=== PATIENT | female | born 1995 | race African-American/Black ===

== ENCOUNTER 2021-06-08 12:07 | Emergency (ER) | payer OTHER, SELFPAY ==
[2021-06-08 12:16] VITALS: BP 135/80; PULSE 87; RESP 16; TEMP 36.4; O2SAT 100
--- NOTE | 2021-06-08 12:28 | ED.FEMALEGU ---
HPI - Female Genitourinary General Chief complaint: Vaginal Bleeding Stated complaint: bleeding Time Seen by Provider: 06/08/21 12:18 Source: patient, RN notes reviewed and old records reviewed Mode of arrival: ambulatory Limitations: no limitations History of Present Illness HPI Narrative: 26-year-old female presents to the [facility] with complaints of vaginal bleeding that started after she received a phone call from the [facility]. Patient states that she had 4+ home tests. Went to [facility] and had blood work done yesterday, they called her today and was told her level was 16 shortly after patient reports that she started bleeding, started at 1030 today. denies heavy bleeding, states that she only uses tampons and has not had to change it. Patient states that she has an appointment with them on Saturday. For her past 3 pregnancies patient denies receiving extra injections, currently does not know her blood type. Patient denies any chest pain or abdominal pain. No nausea vomiting or diarrhea. Denies any urinary symptoms. LMP around 09 May. [facility] A0 MD elicited complaint: vaginal bleeding Related Data Home Medications Medication Instructions Recorded Confirmed No Home Medications 06/08/21 06/08/21 Allergies Allergy/AdvReac Type Severity Reaction Status Date / Time peanut Allergy Intermediate Itching Verified 11/05/16 14:48 tree nut Allergy Mild Itching Verified 11/05/16 14:48 wheat Allergy Mild Itching Verified 11/05/16 14:48 Review of Systems Review of Systems: All systems reviewed & are unremarkable except as noted in HPI and below Constitutional: Constitutional: Reports no additional constitutional complaints, Denies chills and Denies fatigue Eyes: Eyes: Reports no additional eye complaints ENT: Reports system reviewed and no additional complaints, except as documented Cardiovascular: Cardiovascular: Reports no additional cardiovascular complaints and Denies chest pain Respiratory: Respiratory: Reports no additional respiratory complaints, Denies cough and Denies dyspnea Gastrointestinal: Gastrointestinal: Reports no additional gastrointestinal complaints, Denies abdominal pain, Denies diarrhea, Denies nausea and Denies vomiting Genitourinary: Genitourinary: Reports as per HPI, Reports abnormal vaginal bleeding, Denies nocturia, Denies dysuria, Denies pelvic pain, Denies flank pain and Denies vaginal discharge Musculoskeletal: Musculoskeletal: Reports no additional musculoskeletal complaints and Denies back pain Integumentary/Breasts: Skin/Breast: Reports system reviewed and no additional complaints, except as docu Neurologic: Reports system reviewed and no additional complaints, except as documented Psychiatric: Psychiatric: Reports no additional psychiatric complaints Allergic/Immunologic: Allergic/Immunologic: Reports no additional allergic/immunologic complaints PMFSH Past Medical History Medical History Patient denies medical problems Surgical History Surgical History (Updated 06/08/21 @ 13:00 by Tsering Ratliff APRN) No history of previous surgery Social History Social History (Updated 06/08/21 @ 13:00 by Tsering Ratliff APRN) Living arrangements: with family Gender identity (if verbalized by the patient): Female Comments At the time of my signature, I reviewed and agree with the nursing past medical, surgical, social, and family history. There is no relevant family history pertinent to the patient complaint. Exam Const: General: healthy appearing, no acute distress and alert Nutritional Appearance: well nourished Orientation/consciousness: patient oriented x3 Limitations: no limitations HENMT: Head: normal to inspection Eyes: Conjunctivae: conjunctivae normal Pupils: Equal, round and reactive pupils present Neck: Neck: normal visual inspection, no lymphadenopathy and
== END 2021-06-08 12:38 | disposition home or self-care (01) ==
PROVIDERS: Emergency Provider Nurse Practitioner
DX: N93.9 Abnormal uterine and vaginal bleeding, unspecified (principal)
CPT/HCPCS: 99211; G0463

== ENCOUNTER 2021-06-08 12:53 | Emergency (ER) | payer OTHER, SELFPAY ==
--- NOTE | ~2021-06-08 | US_ITS ---
EXAMINATION: US OB <= 14 weeks fetus DATE: 06/08/2021 15:25 INDICATION: Abdominal pain. Vaginal bleeding. TECHNIQUE: Real-time transabdominal and transvaginal pelvic ultrasound was performed. COMPARISON: None. FINDINGS: TRANSABDOMINAL ULTRASOUND: The uterus measures 8.8 x 4.7 x 5.0 cm. TRANSVAGINAL ULTRASOUND: There is no visible intrauterine gestational sac. The right ovary measures 3 .0 x 1.9 x 1.5 cm. The left ovary measures 4.1 x 1.4 x 1.6 cm. There is normal vascular flow in the o varies. There is physiologic free fluid in the pelvis. IMPRESSION: 1. No visible intrauterine gestational sac, which may be normal in early . Spontaneous abor tion and ectopic are not excluded. Serial beta hCGs are recommended. Reviewed, dictated and finalized at location A. IMPRESSION: 1. No visible intrauterine gestational sac, which may be normal in early pregn berkley. Spontaneous and ectopic are not excluded. Serial beta hCGs are recommended.
[2021-06-08 13:00] VITALS: BP 124/81; PULSE 96; RESP 20; TEMP 36.3; O2SAT 100
--- NOTE | 2021-06-08 13:24 | PC.NURSE ---
Dr. Oneal at bedside to assess pt.
--- NOTE | 2021-06-08 13:47 | PC.NURSE ---
Patient set up for pelvic exam.
[2021-06-08 13:50] LABS: Basophils Percent Auto 0.4 % (0.2-1.2); Eosinophils Absolute Auto 0.2 K/mm3 (0-0.3); Eosinophils Percent Auto 2.7 % (0-4.4); Hematocrit 38.1 % (37.0-47.0); Immature Granulocyte Absolute 0.02 K/mm3 (0.00-0.031); Immature Granulocyte Percent A 0.3 % (0-0.5); Lymphocytes Absolute Auto 2.09 K/mm3 (0.9-3.2); Lymphocytes Percent Auto 30.1 % (18.3-44.2); Mean Corpuscular HGB Conc 31.5 g/dl (32-36); Mean Corpuscular Hemoglobin 26.7 pg (26-34); Mean Corpuscular Volume 84.7 fl (80-100); Mean Platelet Volume 11.3 fl (7.4-10.4); Monocytes Absolute Auto 0.3 K/mm3 (0.1-0.6); Monocytes Percent Auto 4.7 % (2.6-8.5); Neutrophils Absolute Auto 4.3 K/mm3 (1.3-6.7); Neutrophils Percent Auto 61.8 % (45.5-73.1); Platelet Count Result 247 k/mm3 (150-375); Red Cell Distribution Width 12.9 % (11.5-14.5)
[2021-06-08 14:23] LABS: Beta HCG Quantitative 7.92 mIU/ML
--- NOTE | 2021-06-08 14:46 | ED.PREGNANCY ---
HPI - General Chief complaint: Vaginal Bleeding Stated complaint: miscarriage Time Seen by Provider: 06/08/21 13:06 Source: patient and RN notes reviewed Mode of arrival: ambulatory Limitations: no limitations History of Present Illness HPI Narrative: This is a 26 year old female who presents for evaluation of a miscarriage. Patient thinks her last menstrual cycle was May 09. She took 7 test last week and they were positive. She was evaluated by her sustainability engineer this week and she reports her HCG is decreasing and it was 16 on last check. Patient started having heavy vaginal bleeding today. She reports she is passing clots and having lower abdominal cramping. She denies nausea, vomiting, lightheadedness or fever. She does report fatigue. Related Data Home Medications Medication Instructions Recorded Confirmed No Home Medications 06/08/21 06/08/21 Allergies Allergy/AdvReac Type Severity Reaction Status Date / Time peanut Allergy Intermediate Itching Verified 11/05/16 14:48 tree nut Allergy Mild Itching Verified 11/05/16 14:48 wheat Allergy Mild Itching Verified 11/05/16 14:48 Review of Systems Review of Systems: All systems reviewed & are unremarkable except as noted in HPI and below PMFSH Past Medical History Medical History Patient denies medical problems Surgical History Surgical History (Updated 06/08/21 @ 13:00 by Tsering Ratliff APRN) No history of previous surgery Social History Social History (Updated 06/08/21 @ 14:51 by Nannette Oneal MD) Smoking status: Current every day smoker Alcohol intake: current Living arrangements: with family Gender identity (if verbalized by the patient): Female Exam Const: General: no acute distress and alert Orientation/consciousness: patient oriented x3 Eyes: EOM: EOMs intact bilaterally Resp: Effort & Inspection: normal respiratory effort and no retractions Auscultation: clear to auscultation bilaterally Cardio: Rate: regular rate Rhythm: regular rhythm Heart sounds: no murmurs GI: GI Palp: Yes Soft to palpation, No Tenderness to palpation present (GI), No Guarding due to palpation present (GI) and No Rigid due to palpation Auscultation: normal bowel sounds : General: Yes no CVA tenderness Speculum Exam - Cervix: Cervical os closed Other: minimal bleeding. Skin: General skin exam: normal color Rashes: no rashes Neuro: General: patient oriented x3, moves all extremities and CN's II-XI intact bilaterally Psych: Mental Status: mental status grossly normal Affect: normal affect Course Reevaluation(s) Reevaluation #1: I discussed with patient labs and US. HCG has continued to decreased so this is likely miscarriage or failed Date: 06/08/21 Time: 15:34 Vital Signs Vital signs: Vital Signs Temperature 97.3 F L 06/08/21 13:00 Pulse Rate 96 06/08/21 13:00 Respiratory Rate 20 06/08/21 13:00 Blood Pressure 124/81 06/08/21 13:00 Pulse Oximetry 100 06/08/21 13:00 Temperature 98.9 F 06/08/21 15:57 Pulse Rate 93 06/08/21 15:57 Respiratory Rate 16 06/08/21 15:57 Blood Pressure 137/99 H 06/08/21 15:57 Pulse Oximetry 100 06/08/21 15:57 MDM - OB/Uterine Contractions Lab Data Attestation: I reviewed the patient's lab results. Result diagrams: 06/08/21 13:40 Labs: Lab Results 06/08/21 06/08/21 Range/Units 13:40 13:40 WBC 7.0 (4.5-10.0) K/mm3 RBC 4.50 (4.2-5.4) M/mm3 Hgb 12.0 (12.0-15.0) g/dL Hct 38.1 (37.0-47.0) % MCV 84.7 (80-100) fl MCH 26.7 (26-34) pg MCHC 31.5 L (32-36) g/dl RDW 12.9 (11.5-14.5) % Plt Count 247 (150-375) k/mm3 MPV 11.3 H (7.4-10.4) fl Immature Gran % (Auto) 0.3 (0-0.5) % Neut % (Auto) 61.8 (45.5-73.1) % Lymph % (Auto) 30.1 (18.3-44.2) % Haines % (Auto) 4.7 (2.6-8.5) % Eos % (Auto) 2.7 (0-4.4)
--- NOTE | 2021-06-08 15:11 | PC.NURSE ---
Pt off unit to US.
--- NOTE | 2021-06-08 15:15 | PC.NURSE ---
Patient returned to room from US. Call light within reach. Awaiting results and disposition. Will continue to monitor.
[2021-06-08 15:57] VITALS: BP 137/99; PULSE 93; RESP 16; TEMP 37.2; O2SAT 100
== END 2021-06-08 16:00 | disposition home or self-care (01) ==
PROVIDERS: Emergency Provider General Practice
DX: O03.9 Complete or unspecified spontaneous abortion without complication (principal); F17.200 Nicotine dependence, unspecified, uncomplicated
CPT/HCPCS: 36415; 76801; 84702; 85025; 99284

== ENCOUNTER 2021-11-05 18:46 | Emergency (ER) | payer OTHER, SELFPAY ==
--- NOTE | 2021-11-05 18:49 | ED.URI ---
HPI - URI/Sore Throat General Chief Complaint: Upper Respiratory Infection Stated Complaint: not feeling well Time Seen by Provider: 11/05/21 18:57 Source: patient, RN notes reviewed and old records reviewed Mode of arrival: ambulatory Limitations: no limitations History of Present Illness HPI Narrative: 26-year-old female presents to the [facility] with complaints of sinus congestion since yesterday. Had taken 1 allergy pill Has a history of seasonal allergies but does not take anything daily. Related Data Allergies Allergy/AdvReac Type Severity Reaction Status Date / Time peanut Allergy Intermediate Itching Verified 11/05/21 18:48 tree nut Allergy Mild Itching Verified 11/05/21 18:48 wheat Allergy Mild Itching Verified 11/05/21 18:48 Review of Systems Review of Systems: All systems reviewed & are unremarkable except as noted in HPI and below Constitutional: Constitutional: Reports no additional constitutional complaints, Denies chills and Denies fever(s) Eyes: Eyes: Reports no additional eye complaints ENT: Reports as per HPI, Denies vertigo, Denies dizziness, Denies epistaxis, Reports nasal congestion and Denies sore throat Cardiovascular: Cardiovascular: Reports no additional cardiovascular complaints Respiratory: Respiratory: Reports no additional respiratory complaints Gastrointestinal: Gastrointestinal: Reports no additional gastrointestinal complaints Musculoskeletal: Musculoskeletal: Reports no additional musculoskeletal complaints Integumentary/Breasts: Skin/Breast: Reports system reviewed and no additional complaints, except as docu Neurologic: Reports system reviewed and no additional complaints, except as documented Psychiatric: Psychiatric: Reports no additional psychiatric complaints Allergic/Immunologic: Allergic/Immunologic: Reports no additional allergic/immunologic complaints [facility] Past Medical History Medical History Patient denies medical problems Surgical History Surgical History No history of previous surgery Social History Social History Smoking status: Current every day smoker Alcohol intake: current Gender identity (if verbalized by the patient): Female Comments At the time of my signature, I reviewed and agree with the nursing past medical, surgical, social, and family history. There is no relevant family history pertinent to the patient complaint. Exam Const: General: healthy appearing, no acute distress and alert Nutritional Appearance: well nourished Orientation/consciousness: patient oriented x3 Limitations: no limitations HENMT: Head: normal to inspection Ears: external ears normal, TM's normal bilaterally and EAC's normal General nose exam: Normal external nose present and Normal nares present Face and sinus: normal facial exam Mouth: Yes Normal oral and palatal mucosa present, Yes lip normal and Yes moist mucous membranes Throat: posterior oropharynx normal and uvula midline Eyes: General: appearance normal, both eyes and all related structures Conjunctivae: conjunctivae normal Pupils: Equal, round and reactive pupils present Neck: Neck: normal visual inspection, no lymphadenopathy and no meningeal signs Chest: Chest palpation & inspection: normal inspection of the chest Resp: Effort & Inspection: normal respiratory effort and no use of accessory muscles Auscultation: clear to auscultation bilaterally, no crackles, no rales, no rhonchi and no wheezes Cardio: Rate: regular rate Rhythm: regular rhythm Back/Spine/Pelvis: Cervical Spine: normal cervical lordosis Thoracic/Lumbar Spine: thoracic and lumbar spine normal to inspection Skin: General skin exam: normal color Rashes: no rashes Wounds: no wounds Neuro: General: patient oriented x3, moves all extremities, no meningeal signs and no fo
[2021-11-05 18:57] VITALS: BP 129/76; PULSE 93; RESP 16; TEMP 36.8; O2SAT 100
== END 2021-11-05 19:20 | disposition home or self-care (01) ==
PROVIDERS: Emergency Provider Nurse Practitioner; PCP Physician Assistant
DX: J01.90 Acute sinusitis, unspecified (principal); F17.200 Nicotine dependence, unspecified, uncomplicated
CPT/HCPCS: 99213; G0463

== ENCOUNTER 2022-01-10 11:45 | Outpatient (RCR) | payer OTHER, SELFPAY ==
--- NOTE | 2022-01-02 14:09 | PTOPEVAL1 ---
Assessment and note entered by Ben Chapman, PT Evaluation Information Assessment Status Evaluation Diagnosis DEANDRE knee pain L worse than the R side Subjective Information The patient reports she has been having knee pain for a long time, but it has really gotten bad in these last few weeks. Incidentally the patient also has become . Patient works 8-10 hour shifts on her feet at [employer]. The pain radiated slightly from the front of the knee to up in the lower quads and upper tibia. Pain is aggravated by increased time in standing, stairs, and sleeping. She does use the heat from a heater tower to help with pain, doesn't want to take any medicine secondary to being . Reported Pain Level Pain Score 2,0: Self Report Assessment PT Clinical Summary Vanessa is a 26 year old female coming into the clinic with DEANDRE knee pain with the L knee being worse than the R side. The patient presents with decreased strength in the quads and hips along with tightness in the hamstrings and quads. The patient has pain and hypermobility around the knee joints. Patient could benefit from skilled therapy for exercises to strengthen the muscles in the lower extremities along with stretches to improve body alignment and cryotherapy for pain control. One guarded condition is with patient being she could be having ligament laxity that will slow progress. Plan of Care Interventions Gait Training,Hot Pack/Cold Pack,Manual Therapy, Neuro Re-education,Patient/Caregiver Education, Therapeutic Activities,Therapeutic Exercise, Ultrasound,Other Other Interventions taping PT Services Indicated Yes Treatment Frequency and 1-2x/wk for 8 weeks Duration These treatments will address the objective and functional deficits as defined above. The patient will be advanced safely and appropriately in order for the patient to progress towards his/her prior level of function. Additional exercises will be introduced and as well as a comprehensive home exercise program upon discharge, if needed, ?to ensure carryover of functional gains achieved in the clinic. This treatment plan has been reviewed and agreement upon by the patient.
--- NOTE | 2022-01-15 11:22 | PCPTNOTE ---
Patient did not show up for scheduled appointment this date. Called, unable to leave voice mail due to Pt's voicemail box being full. This is Pt's first N/S.
--- NOTE | 2022-01-24 10:37 | PCPTNOTE ---
Patient did not show up for scheduled appointment this date; called patient's mailbox is full, noted no re-eval or next appointment was scheduled.
--- NOTE | 2022-03-20 16:01 | PCPTNOTE ---
Admitting Provider: Attending Provider: Rajat Shah APN Patient:Leonarda Stevens Date of :1995 Patient has not returned for any further treatments since 01/10/2022, therefore (he/she) will be discharged at this time. Patient?s initial visit was on 01/02/2022 12:30 and (he/she) had a total of ____3____ visits. The goals have been not met. Thank you for referring this patient to [facility]. Please review, sign, date and return this discharge summary AURELIO. I have been updated about the patient's current status and I agree with discharge from the above service at this time. Referring Physician Date
== END 2022-03-19 13:39 | disposition home or self-care (01) ==
LOC: ANHPT 11:45
PROVIDERS: Visit Provider Nurse Practitioner
DX: M25.561 Pain in right knee (principal); M25.562 Pain in left knee
CPT/HCPCS: 97110; 97140; 97161; 97530; 99199

== ENCOUNTER 2022-02-02 11:38 | Emergency (ER) | payer OTHER, SELFPAY ==
[2022-02-02 12:05] VITALS: BP 129/76; PULSE 102; RESP 16; TEMP 36.2; O2SAT 100
[2022-02-02] MEDS: SODIUM CHLORIDE 0.9% IV 1,000 ML 999 ML IV CONT (13:24)
[2022-02-02] MEDS: ONDANSETRON INJ 4 MG/2 ML VIAL IV PUSH (13:24)
--- NOTE | 2022-02-02 13:58 | ED.GENADULT ---
HPI - General Adult General Chief complaint: Abdominal Pain Stated complaint: 12 wks with cramping and n/v Time Seen by Provider: 02/02/22 13:00 History of Present Illness HPI narrative: 26-year-old female presents to the emergency room for evaluation of nausea vomiting and generalized fatigue for 2 weeks. Patient states she is 12 weeks has not received any ASSET COORDINATOR care from her physician at [facility]. Patient states she has been frequently nauseated and unable to keep food and fluids down. Denies any abdominal pain or vaginal bleeding. Related Data Allergies Allergy/AdvReac Type Severity Reaction Status Date / Time peanut Allergy Intermediate Itching Verified 02/02/22 13:23 tree nut Allergy Mild Itching Verified 02/02/22 13:23 wheat Allergy Mild Itching Verified 02/02/22 13:23 Review of Systems Review of Systems: CONSTITUTIONAL: Denies fever, chills, or sweats. EYES: Denies visual changes, redness, or discharge. ENT: Denies rhinorrhea, congestion, sore throat, or otalgia. CARDIOVASCULAR: Denies chest pain, palpitations, or edema. RESPIRATORY: Denies cough or dyspnea. GASTROINTESTINAL: Reports nausea vomiting GENITOURINARY: Denies dysuria or hematuria. SKIN: Denies rash or itching. MUSCULOSKELETAL: Denies back pain, joint pain, or myalgia. NEUROLOGIC: Reports generalized fatigue and weakness PSYCHIATRIC: Denies anxiety or depression. 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 HEAD: Normocephalic, atraumatic. EYES: Conjunctivae normal, PERRLA and EOMI. ENT: External nose normal, Nares clear, no rhinorrhea or epistaxis. Mucous membranes dry. CHEST: Clear to auscultation. No respiratory distress. No wheezes rales or rhonchi. HEART: Regular rate and rhythm. No murmur heard. Normal peripheral pulses. ABDOMEN: Soft, nontender, nondistended, normal active bowel sounds. BACK: No CVA tenderness EXTREMITIES: Normal range of motion. No edema. No clubbing or cyanosis SKIN: Warm, dry, no rash. No noted wounds NEURO: No focal deficits. Alert and oriented x3. MAEW. CN's II-XI intact bilaterally, normal gait PSYCH: Cooperative. Normal mood and affect. Course Vital Signs Vital signs: Vital Signs Temperature 36.2 C L 02/02/22 12:05 Pulse Rate 102 H 02/02/22 12:05 Respiratory Rate 16 02/02/22 12:05 Blood Pressure 129/76 02/02/22 12:05 Pulse Oximetry 100 02/02/22 12:05 Oxygen Delivery Room Air 02/02/22 12:05 Temperature 36.2 C L 02/02/22 12:05 Pulse Rate 102 H 02/02/22 12:05 Respiratory Rate 16 02/02/22 12:05 Blood Pressure 129/76 02/02/22 12:05 Pulse Oximetry 100 02/02/22 12:05 Oxygen Delivery Room Air 02/02/22 12:05 Medical Decision Making Vital Signs Vital Signs: Vital Signs Temperature 36.2 C L 02/02/22 12:05 Pulse Rate 102 H 02/02/22 12:05 Respiratory Rate 16 02/02/22 12:05 Blood Pressure 129/76 02/02/22 12:05 Pulse Oximetry 100 02/02/22 12:05 Oxygen Delivery Room Air 02/02/22 12:05 Temperature 36.2 C L 02/02/22 12:05 Pulse Rate 102 H 02/02/22 12:05 Respiratory Rate 16 02/02/22 12:05 Blo
[2022-02-02 14:08] LABS: Basophils Percent Auto 0.4 % (0.2-1.2); Eosinophils Absolute Auto 0.2 K/mm3 (0-0.3); Eosinophils Percent Auto 2.2 % (0-4.4); Hematocrit 36.4 % (37.0-47.0); Hemoglobin 12.1 g/dL (12.0-15.0); Immature Granulocyte Absolute 0.01 K/mm3 (0.00-0.031); Immature Granulocyte Percent A 0.1 % (0-0.5); Lymphocytes Absolute Auto 1.85 K/mm3 (0.9-3.2); Lymphocytes Percent Auto 24.1 % (18.3-44.2); Mean Corpuscular HGB Conc 33.2 g/dl (32-36); Mean Corpuscular Hemoglobin 27.1 pg (26-34); Mean Corpuscular Volume 81.6 fl (80-100); Monocytes Absolute Auto 0.5 K/mm3 (0.1-0.6); Monocytes Percent Auto 6.6 % (2.6-8.5); Neutrophils Absolute Auto 5.1 K/mm3 (1.3-6.7); Neutrophils Percent Auto 66.6 % (45.5-73.1); Platelet Count Result 196 k/mm3 (150-375); Red Blood Count 4.46 M/mm3 (4.2-5.4); Red Cell Distribution Width 13.6 % (11.5-14.5); White Blood Count 7.7 K/mm3 (4.5-10.0)
[2022-02-02 14:26] LABS: Alanine Aminotransferase 12 U/L (6-35); Albumin Level 4.7 g/dL (3.5-5.1); Alkaline Phosphatase 47 U/L (38-126); Anion Gap 8 mmol/L (8-16); Aspartate Amino Transferase 31 U/L (14-36); Bilirubin,Total 0.4 mg/dL (0.2-1.3); Blood Urea Nitrogen 6 mg/dL (7-17); Calcium 9.4 mg/dL (8.4-10.2); Carbon Dioxide 25 mmol/L (22-30); Chloride 103 mmol/L (98-107); Estimated CRCL calculation 152 ml/min; Estimated Glomerular Filt Rate > 60; Glucose 90 mg/dL (65-110); Lipase 97 U/L (23-300); Potassium 3.9 mmol/L (3.4-5.0); Sodium 136 mmol/L (137-145)
== END 2022-02-02 16:10 | disposition home or self-care (01) ==
PROVIDERS: Emergency Provider Nurse Practitioner Family
DX: O21.9 Vomiting of pregnancy, unspecified (principal); O99.331 Smoking (tobacco) complicating pregnancy, first trimester; F17.210 Nicotine dependence, cigarettes, uncomplicated; Z3A.12 12 weeks gestation of pregnancy
CPT/HCPCS: 36415; 80053; 83690; 85025; 96361; 96374; 99284; J2405; J7030

== ENCOUNTER 2022-04-02 10:12 | Emergency (ER) | payer OTHER, SELFPAY ==
[2022-04-02 10:17] VITALS: BP 108/60; PULSE 93; RESP 16; TEMP 36.3; O2SAT 100
[2022-04-02 11:23] VITALS: RESP 16; O2SAT 100
--- NOTE | 2022-04-02 12:04 | ED.NAVMDI ---
HPI - Nausea/Vomiting/Diarrhea General Chief complaint: Nausea/Vomiting/Diarrhea Stated complaint: vomiting, possible dehydration Time Seen by Provider: 04/02/22 11:30 Source: patient Mode of arrival: ambulatory Limitations: no limitations History of Present Illness HPI Narrative: This is a 27 year old , about 19 weeks , that presents to the ER for nausea and vomiting. Ongoing throughout this . She has seen her OB and had normal US this . She follows with [facility] for her . She has been prescribed several anti-emetics. She has not taken any yet this morning. Reports she has also been having a lot of trouble with heartburn. Denies fever, diarrhea, vaginal bleeding or dysuria. Related Data Allergies Allergy/AdvReac Type Severity Reaction Status Date / Time peanut Allergy Intermediate Itching Verified 04/02/22 12:21 tree nut Allergy Mild Itching Verified 04/02/22 12:21 wheat Allergy Mild Itching Verified 04/02/22 12:21 Review of Systems Review of Systems: CONSTITUTIONAL: Denies fever GASTROINTESTINAL: Reports nausea and vomiting. Denies abdominal pain or diarrhea. GENITOURINARY: Denies dysuria or hematuria. 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 HEAD: Normocephalic, atraumatic. EYES: EOMI. CHEST: Clear to auscultation. No respiratory distress. No wheezes rales or rhonchi HEART: Regular rate and rhythm. No murmur heard. Normal peripheral pulses. ABDOMEN: Soft, nontender, nondistended, normal active bowel sounds. EXTREMITIES: Normal range of motion. No edema. SKIN: Warm, dry, no rash. NEURO: No focal deficits. Alert and oriented x3. PSYCH: Normal mood and affect Course Course Emergency Course: Patient reports improvement. Resting comfortably. Requesting to eat Vital Signs Vital signs: Vital Signs Temperature 97.4 F L 04/02/22 10:17 Pulse Rate 93 04/02/22 10:17 Respiratory Rate 16 04/02/22 10:17 Blood Pressure 108/60 04/02/22 10:17 Pulse Oximetry 100 04/02/22 10:17 Oxygen Delivery Room Air 04/02/22 10:17 Temperature 97.4 F L 04/02/22 10:17 Pulse Rate 93 04/02/22 10:17 Respiratory Rate 16 04/02/22 11:23 Blood Pressure 108/60 04/02/22 10:17 Pulse Oximetry 100 04/02/22 11:23 Oxygen Delivery Room Air 04/02/22 11:23 MDM - Nausea/Vomiting/Diarrhea MDM Narrative Medical decision making narrative: Patient presents to the emergency department for nausea and vomiting of . Currently 19 weeks . She is afebrile and nontoxic-appearing. Has been following with her OB this and has had a normal ultrasound. Reports this has been an ongoing problem for her this . She has been prescribed several antiemetics for this. CBC is without leukocytosis. Does show normocytic anemia with hemoglobin of 10.6. Metabolic panel and lipase without concerning findings. Urine with some evidence of dehydration. Patient given a liter of IV fluids in the ED. No overt evidence for infection, appears to be a contami
[2022-04-02 12:07] LABS: Basophils Percent Auto 0.4 % (0.2-1.2); Eosinophils Absolute Auto 0.1 K/mm3 (0-0.3); Eosinophils Percent Auto 2.2 % (0-4.4); Hematocrit 31.7 % (37.0-47.0); Hemoglobin 10.6 g/dL (12.0-15.0); Immature Granulocyte Absolute 0.02 K/mm3 (0.00-0.031); Immature Granulocyte Percent A 0.4 % (0-0.5); Lymphocytes Absolute Auto 1.36 K/mm3 (0.9-3.2); Lymphocytes Percent Auto 25.3 % (18.3-44.2); Mean Corpuscular HGB Conc 33.4 g/dl (32-36); Mean Corpuscular Hemoglobin 28.3 pg (26-34); Mean Corpuscular Volume 84.8 fl (80-100); Mean Platelet Volume 11.3 fl (7.4-10.4); Monocytes Absolute Auto 0.4 K/mm3 (0.1-0.6); Monocytes Percent Auto 6.5 % (2.6-8.5); Neutrophils Absolute Auto 3.5 K/mm3 (1.3-6.7); Neutrophils Percent Auto 65.2 % (45.5-73.1); Platelet Count Result 189 k/mm3 (150-375); Red Blood Count 3.74 M/mm3 (4.2-5.4); Red Cell Distribution Width 13.3 % (11.5-14.5); White Blood Count 5.4 K/mm3 (4.5-10.0)
[2022-04-02 12:08] LABS: Appearance Urine Slightly Cloudy (Clear); Bilirubin Urine 1+ (Negative); Blood Urine Negative (Negative); Color Urine Yellow (Yellow); Glucose Urine UA Negative (Negative); Ketones Urine 2+ mg/dL (Negative); Leukocyte Esterase Ur Trace LEU/UL (Negative); Nitrate Urine Negative (Negative); Protein Urine 1+ mg/dL (Negative); Specific Grav Ur 1.025 (1.001-1.035)
[2022-04-02] MEDS: ONDANSETRON INJ 4 MG/2 ML VIAL IV PUSH (12:12)
[2022-04-02] MEDS: SODIUM CHLORIDE 0.9% IV 1,000 ML 999 ML IV CONT (12:13)
[2022-04-02] MEDS: FAMOTIDINE 20 MG/2 ML VIAL IV PUSH (12:13)
[2022-04-02 12:26] LABS: Alanine Aminotransferase 11 U/L (6-35); Albumin Level 3.6 g/dL (3.5-5.1); Alkaline Phosphatase 55 U/L (38-126); Anion Gap 5 mmol/L (8-16); Aspartate Amino Transferase 30 U/L (14-36); Bilirubin,Total 0.4 mg/dL (0.2-1.3); Blood Urea Nitrogen 6 mg/dL (7-17); Calcium 8.8 mg/dL (8.4-10.2); Carbon Dioxide 25 mmol/L (22-30); Chloride 106 mmol/L (98-107); Estimated Glomerular Filt Rate > 60; Glucose 90 mg/dL (65-110); Lipase 69 U/L (23-300); Potassium 3.6 mmol/L (3.4-5.0); Sodium 136 mmol/L (137-145)
[2022-04-02 12:31] LABS: Bacteria Urine Trace /hpf; Mucus Urine Heavy /lpf; Squamous Epithelial Cell Urine Many /hpf (Few)
[2022-04-02 12:45] LABS: Add Urine Microscopic? YES
== END 2022-04-02 14:38 | disposition home or self-care (01) ==
PROVIDERS: Emergency Provider Physician Assistant
DX: O21.9 Vomiting of pregnancy, unspecified (principal); Z91.010 Allergy to peanuts; Z87.891 Personal history of nicotine dependence; Z3A.19 19 weeks gestation of pregnancy
CPT/HCPCS: 36415; 80053; 81001; 81025; 83690; 85025; 87086; 87088; 96361; 96374; 96375; 99284; J2405; J7030

== ENCOUNTER 2022-05-28 10:10 | Observation (INO) | payer OTHER, SELFPAY ==
[2022-05-28 10:30] VITALS: BP 120/65; PULSE 93
--- NOTE | 2022-05-28 10:30 | OBADM ---
This patient, Leonarda Stevens, admitted to the OB room OB Post 115 for observation. Patient/family oriented to hospital policies and general routines including ID bracelet, bed and alarms, visiting hours, pain management, procedures, bathroom and other care routines, personal items, smoking policy, room service/diet, and visiting hours. Patient/Family are encouraged to report perceived risks to care and to ask questions if they do not understand what they are told or what they should do.
[2022-05-28 10:45] VITALS: BP 121/78; PULSE 104; BMI 37.5
[2022-05-28 11:00] VITALS: BP 118/71; PULSE 100
[2022-05-28 12:08] LABS: Appearance Urine Turbid (Clear); Bacteria Urine None Seen /hpf; Bilirubin Urine Negative (Negative); Blood Urine Negative (Negative); Color Urine Yellow (Yellow); Glucose Urine UA Negative (Negative); Ketones Urine 2+ mg/dL (Negative); Leukocyte Esterase Ur Negative LEU/UL (NEGATIVE); Mucus Urine Present /lpf; Nitrate Urine Negative (Negative); Non Pathogenic Casts 0-2; Protein Urine Trace mg/dL (Negative); RBC Urine 0-2 /hpf (0-2); Specific Grav Ur 1.017 (1.001-1.035); Squamous Epithelial Cell Urine None seen /hpf (Few); WBC Urine 0-5 /hpf (0-3)
[2022-05-28 12:10] LABS: Add Urine Microscopic? YES
--- NOTE | 2022-05-28 13:00 | PC.NURSE ---
Dr Herr on unit, report on patient given. Orders for IV fluids.
[2022-05-28] MEDS: LACTATED RINGERS 1,000 ML 999 ML IV CONT (13:18)
[2022-05-28] MEDS: ONDANSETRON INJ 4 MG/2 ML VIAL IV PUSH (13:19)
--- NOTE | 2022-05-29 17:23 | PM.OBTRLD ---
OB - Triage/Final Diagnosis Visit Information Reason for evaluation: threatened labor Comments/Additional reasons for admission: I have assessed the risk for this patient, Leonarda Stevens, and determined that she would benefit from observation care. Evaluation Laboratory results: Laboratory Tests 05/28/22 11:09 Urine Color Yellow Urine Appearance Turbid H Urine pH 8.0 Ur Specific [place] 1.017 Urine Protein Trace Urine Glucose (UA) Negative Urine Ketones 2+ H Ur Blood (Man) Negative Urine Nitrate Negative Urine Bilirubin Negative Urine Urobilinogen 2.0 H Ur Leukocyte Esterase Negative Urine RBC 0-2 Urine WBC 0-5 Ur Squamous Epith Cells None seen Urine Bacteria None seen Urine Casts 0-2 Urine Mucus Present
== END 2022-05-28 14:45 | disposition home or self-care (01) ==
PROVIDERS: Admitting Provider Obstetrics & Gynecology; Visit Provider Obstetrics & Gynecology
DX: O47.02 False labor before 37 completed weeks of gestation, second trimester (principal); O26.892 Other specified pregnancy related conditions, second trimester; R10.9 Unspecified abdominal pain; Z3A.27 27 weeks gestation of pregnancy
CPT/HCPCS: 81001; 87086; 87088; 87426; 87804; 87880; 96374; C9803; G0378; G0379; J2405; J7120

== ENCOUNTER 2022-05-28 15:42 | Emergency (ER) | payer OTHER, SELFPAY ==
[2022-05-28 15:55] VITALS: BP 133/71; PULSE 117; RESP 16; TEMP 37; O2SAT 100
--- NOTE | 2022-05-28 15:59 | ED.URI ---
HPI - URI/Sore Throat General Chief Complaint: Upper Respiratory Infection Stated Complaint: Vomiting/ Right Ear Irritation Time Seen by Provider: 05/28/22 16:16 Source: patient and RN notes reviewed Mode of arrival: ambulatory Limitations: no limitations History of Present Illness HPI Narrative: 27-year-old female who is 6 months presents with concern for 3-4 day history of vomiting, ear pain, cough, dry mouth, nasal congestion, stomach cramps. [facility] and her symptoms are not related to her . MD elicited complaint: other (Vomiting) Related Data Home Medications Medication Instructions Recorded Confirmed promethazine 12.5 mg tablet mg 05/28/22 Allergies Allergy/AdvReac Type Severity Reaction Status Date / Time peanut Allergy Intermediate Itching Verified 05/28/22 15:55 tree nut Allergy Mild Itching Verified 05/28/22 15:55 wheat Allergy Mild Itching Verified 05/28/22 15:55 Review of Systems Review of Systems: CONSTITUTIONAL: Reports malaise. Denies chills, sweats, or fever. EYES: Denies visual changes, redness, or discharge. ENT: Reports rhinorrhea, congestion, otalgia and sore throat. CARDIOVASCULAR: Denies chest pain, palpitations, or edema. RESPIRATORY: Reports cough. Denies dyspnea. GASTROINTESTINAL: Reports abdominal pain, nausea, vomiting. Denies diarrhea SKIN: Denies rash or itching. MUSCULOSKELETAL: Denies myalgia. NEUROLOGIC: Denies headache. 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 There is no relevant family history pertinent to the presenting complaint Exam Narrative: GENERAL: Well-appearing, well-nourished, and in no acute distress. HEAD: Normocephalic EYES: PERRLA, conjunctivae clear ENT: Nares clear, turbinates edematous and erythematous, clear discharge. Mucous membranes moist. TM pearly al with dull light reflex bilaterally; no tragal tenderness. Oropharynx not erythematous without lesions. Tonsils not enlarged and without exudate, no drooling, no hoarseness, no trismus, uvula midline. NECK: Supple. No lymphadenopathy CHEST: Clear to auscultation, breath sounds equal. No wheezing, rhonchi, rales, or stridor. No respiratory distress, speaks in full sentences. HEART: Regular rate and rhythm. No murmur heard. SKIN: Warm, dry, no rash. NEURO: Alert and oriented x3. PSYCH: Normal mood and affect Course Course Emergency Course: Patient is aware of diagnosis, understands and agrees to treatment plan. Anticipatory guidance given. Patient agrees to follow-up as directed and is aware of reasons to seek care at the emergency department. Portions of this record may have been created with voice recognition software Level of Care: Express Care Visit Vital Signs Vital signs: Vital Signs Temperature 98.6 F 05/28/22 15:55 Pulse Rate 117 H 05/28/22 15:55 Respiratory Rate 16 05/28/22 15:55 Blood Pressure 133/71 05/28/22 15:55 Pulse Oximetry 100 05/28/22 15:55 Oxygen Delive
== END 2022-05-28 16:28 | disposition home or self-care (01) ==
PROVIDERS: Emergency Provider Nurse Practitioner
DX: J02.0 Streptococcal pharyngitis (principal); Z87.891 Personal history of nicotine dependence; Z20.822 Contact with and (suspected) exposure to COVID-19
CPT/HCPCS: 87426; 87804; 87880; 99213; C9803; G0463

== ENCOUNTER 2022-05-31 04:11 | Emergency (ER) | payer OTHER, SELFPAY ==
[2022-05-31 04:17] VITALS: BP 171/87; PULSE 110; RESP 22; TEMP 36.9; O2SAT 99
[2022-05-31 05:10] LABS: Basophils Percent Auto 0.2 % (0.2-1.2); Eosinophils Absolute Auto 0.3 K/mm3 (0-0.3); Hematocrit 29.8 % (37.0-47.0); Immature Granulocyte Absolute 0.05 K/mm3 (0.00-0.031); Immature Granulocyte Percent A 0.8 % (0-0.5); Lymphocytes Absolute Auto 1.48 K/mm3 (0.9-3.2); Lymphocytes Percent Auto 22.5 % (18.3-44.2); Mean Corpuscular HGB Conc 33.6 g/dl (32-36); Mean Corpuscular Hemoglobin 28.4 pg (26-34); Mean Corpuscular Volume 84.7 fl (80-100); Mean Platelet Volume 10.8 fl (7.4-10.4); Monocytes Absolute Auto 0.4 K/mm3 (0.1-0.6); Monocytes Percent Auto 5.8 % (2.6-8.5); Neutrophils Absolute Auto 4.3 K/mm3 (1.3-6.7); Neutrophils Percent Auto 65.7 % (45.5-73.1); Platelet Count Result 231 k/mm3 (150-375); Red Blood Count 3.52 M/mm3 (4.2-5.4); White Blood Count 6.6 K/mm3 (4.5-10.0)
[2022-05-31 05:28] LABS: Alanine Aminotransferase 12 U/L (6-35); Albumin Level 3.9 g/dL (3.5-5.1); Alkaline Phosphatase 81 U/L (38-126); Anion Gap 5 mmol/L (8-16); Aspartate Amino Transferase 37 U/L (14-36); Bilirubin,Total 0.4 mg/dL (0.2-1.3); Blood Urea Nitrogen 3 mg/dL (7-17); Calcium 9.2 mg/dL (8.4-10.2); Carbon Dioxide 28 mmol/L (22-30); Chloride 102 mmol/L (98-107); Estimated CRCL calculation 181 ml/min; Estimated Glomerular Filt Rate > 60; Glucose 99 mg/dL (65-110); Lipase 62 U/L (23-300); Potassium 3.1 mmol/L (3.4-5.0); Sodium 135 mmol/L (137-145)
[2022-05-31] MEDS: POTASSIUM CHLORIDE 20 MEQ TABLET 40 MEQ PO (05:53)
[2022-05-31] MEDS: PROMETHAZINE HCL 25 MG/ML AMPUL 12.5 MG IV PUSH (05:54)
[2022-05-31] MEDS: ONDANSETRON INJ 4 MG/2 ML VIAL IV PUSH (05:55)
[2022-05-31 06:31] LABS: Appearance Urine Turbid (Clear); Bacteria Urine None Seen /hpf; Bilirubin Urine Negative (Negative); Blood Urine Negative (Negative); Color Urine Yellow (Yellow); Glucose Urine UA Negative (Negative); Ketones Urine Trace mg/dL (Negative); Leukocyte Esterase Ur 1+ LEU/UL (Negative); Nitrate Urine Negative (Negative); Non Pathogenic Casts 0-2; Protein Urine Trace mg/dL (Negative); RBC Urine 0-2 /hpf (0-2); Specific Grav Ur 1.018 (1.001-1.035); Squamous Epithelial Cell Urine Moderate /hpf (Few); pH Urine 8.5 (5.0-9.0)
--- NOTE | 2022-05-31 06:40 | ED.GENADULT ---
HPI - General Adult General Chief complaint: Nausea/Vomiting/Diarrhea Stated complaint: vomiting Time Seen by Provider: 05/31/22 05:39 History of Present Illness HPI narrative: This is a 27-year-old at 26 weeks presenting ED with nausea and vomiting. Patient has been plagued by nausea and vomiting throughout her entire . She has intermittently taken Zofran and Pepcid but states that the Zofran does not work and is not currently taking anything for antiemetics. She is diagnosed with strep 3 days ago and has been taking penicillin with gradual improvement of her symptoms. She denies fever, chills, throat swelling, inability to handle her own secretions. She is here to help get control of her nausea. Patient also notes that she has developed redness and irritation of her right eye today. Related Data Home Medications Medication Instructions Recorded Confirmed promethazine 12.5 mg tablet mg 05/28/22 Allergies Allergy/AdvReac Type Severity Reaction Status Date / Time peanut Allergy Intermediate Itching Verified 05/28/22 15:55 tree nut Allergy Mild Itching Verified 05/28/22 15:55 wheat Allergy Mild Itching Verified 05/28/22 15:55 PMFSH Past Medical History Medical History Patient denies medical problems Surgical History Surgical History History of cholecystectomy Family History Family History Mother Asthma Grandparent Asthma Cancer Depression Heart disease Other Cancer Cerebrovascular accident Sibling Depression Social History Social History Smoking status: Former smoker Tobacco type: cigarettes Living arrangements: with friend(s) Occupation/Education: occupation 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 Head: atraumatic. Mild erythema of the posterior pharynx, no evidence of abscess or uvula deviation EYES: Right eye is injected with clear discharge. NOSE: Atraumatic NECK: Trachea midline RESPIRATORY: No increased rate of breathing, clear to auscultation CARDIOVASCULAR: RRR, tachycardic ABDOMINAL: Non-distended, soft no guarding, no rebound MUSCULOSKELETAl: No obvious deformities NEURO: Alert. Moving 4/4 extremities SKIN:: Warm, dry. Normal color PSYCHIATRIC: Normal affect Course Vital Signs Vital signs: Vital Signs Temperature 98.4 F 05/31/22 04:17 Pulse Rate 110 H 05/31/22 04:17 Respiratory Rate 22 H 05/31/22 04:17 Blood Pressure 171/87 H 05/31/22 04:17 Pulse Oximetry 99 05/31/22 04:17 Oxygen Delivery Room Air 05/31/22 04:17 Temperature 98.4 F 05/31/22 04:17 Pulse Rate 110 H 05/31/22 04:17 Respiratory Rate 22 H 05/31/22 04:17 Blood Pressure 171/87 H 05/31/22 04:17 Pulse Oximetry 99 05/31/22 04:17 Oxygen Delivery Room Air 05/31/22 04:17 Medical Decision Making MDM Narrative Medical decision making narrative: -Presentation: 27-year-old woman presenting with nausea and vomiting. -DDX includes but is not limited to: Nausea vomiting , nausea vomiting due to strep throat -Co-morbidities complicating care: noncompliance of medication -Social determinants of health: patient works at [employer], lives with her 3 children -External Chart Review: none -Hx from independent Sources: none -Discussion of Management/Consultants: none -Independent interpretation of studies: CBC was within normal limits. Metabolic panel showed hypokalemia which will be repleted orally. Urinalysis was a dirty catch w/ 6-10 wbcs per/hpf. Trace ketones. Significant squamous cells. Patient is asymptomatic. Dx tests considered but not ordered: -Procedures:
[2022-05-31 07:20] LABS: Add Urine Microscopic? YES
[2022-05-31 08:14] VITALS: BP 125/62; PULSE 102; RESP 18; O2SAT 100
[2022-06-01 03:21] LABS: Amphetamine Screen Urine Negative (Negative); Barbiturate Screen Urine Negative (Negative); Benzodiazepines Screen Urine Negative (Negative); Cannabinoid Screen Urine Negative (Negative); Cocaine Screen Urine Negative (Negative); Methadone Screen Urine Negative (Negative); Opiate Screen Urine Negative (Negative); Phencyclidine Screen Urine Negative (Negative)
== END 2022-05-31 08:43 | disposition home or self-care (01) ==
PROVIDERS: Emergency Provider Emergency Medicine
DX: Z87.891 Personal history of nicotine dependence (principal); O21.2 Late vomiting of pregnancy; O99.891 Other specified diseases and conditions complicating pregnancy; H10.9 Unspecified conjunctivitis; O99.282 Endocrine, nutritional and metabolic diseases complicating pregnancy, second trimester; E86.0 Dehydration; Z3A.26 26 weeks gestation of pregnancy
CPT/HCPCS: 36415; 80053; 80307; 81001; 83690; 85025; 87086; 96361; 96374; 96375; 99284; A9270; J2405; J2550; J7042

== ENCOUNTER 2022-10-08 12:32 | Emergency (ER) | payer OTHER, SELFPAY ==
[2022-10-08 12:46] VITALS: BP 142/90; PULSE 83; RESP 16; TEMP 37.1; O2SAT 100
--- NOTE | 2022-10-08 12:55 | ED.GENADULT ---
HPI - General Adult General Chief complaint: Skin/Abscess/Foreign Body Stated complaint: Thrush Source: patient Mode of arrival: ambulatory Limitations: no limitations History of Present Illness HPI narrative: 27-year-old female presented for complaint of pain and itching to the nipples worsening over the past 3 days. Endorses mild redness and flaking to the areola. Endorses the infant has white patches in mouth and tongue. Denies any other skin complaints or concerns. Denies severe pain to breasts, erythema, tenderness, or fever. Endorses normal and feeding. Related Data Allergies Allergy/AdvReac Type Severity Reaction Status Date / Time peanut Allergy Intermediate Itching Verified 05/28/22 15:55 tree nut Allergy Mild Itching Verified 05/28/22 15:55 wheat Allergy Mild Itching Verified 05/28/22 15:55 Review of Systems Review of Systems: CONSTITUTIONAL: Denies body aches, fever, chills, or sweats. EYES: Denies visual changes, redness, or discharge. ENT: Denies rhinorrhea, congestion CARDIOVASCULAR: Denies chest pain, palpitations, or edema. RESPIRATORY: Denies cough or dyspnea. GASTROINTESTINAL: Denies abdominal pain, nausea, vomiting, or diarrhea. SKIN: per HPI MUSCULOSKELETAL: Denies back pain, joint pain, or myalgia. NEUROLOGIC: Denies headache, numbness, tingling, or weakness. 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 Please see nursing chart for further information. There is no relevant family history pertinent to the presenting complaint Exam Narrative: GENERAL: Well-appearing HEAD: Normocephalic, atraumatic. EYES: conjunctivae clear, and EOMI. ENT: Mucous membranes moist. Oropharynx without edema, erythema or lesions. NECK: Supple. No lymphadenopathy CHEST: Clear to auscultation. HEART: Regular rate and rhythm. SKIN: Warm, dry. Mild erythema and flaking to bilateral nipples c/w yeast; No apparent impetiginized nipple pores, blocked pores, abrasions, ulcers, and open cracks.?No apparent ?engorgement, masses, abscesses, no significant tenderness, or areas of severe erythema? NEURO: Alert and oriented x3. Course Course Emergency Course: Patient is aware of diagnosis, understands and agrees to treatment plan. Anticipatory guidance given. Patient agrees to follow-up as directed and is aware of reasons to seek care at the emergency department. Portions of this record may have been created with voice recognition software Level of Care: Express Care Visit Vital Signs Vital signs: Vital Signs Temperature 98.7 F 10/08/22 12:46 Pulse Rate 83 10/08/22 12:46 Respiratory Rate 16 10/08/22 12:46 Blood Pressure 142/90 H 10/08/22 12:46 Pulse Oximetry 100 10/08/22 12:46 Oxygen Delivery Room Air 10/08/22 12:46 Temperature 98.7 F 10/08/22 12:46 Pulse Rate 83 10/08/22 12:46 Respiratory Rate 16 10/08/22 12:46 Blood Pressure 142/90 H 10/08/22 12:46 Pulse Oximetry 100 10/08/22 12:46 Oxygen Delivery Room Air 10/08/22 12:46 Rev
== END 2022-10-08 13:29 | disposition home or self-care (01) ==
PROVIDERS: Emergency Provider Nurse Practitioner Family
DX: B37.2 Candidiasis of skin and nail (principal)
CPT/HCPCS: 99213; G0463

== ENCOUNTER 2023-04-23 10:32 | Emergency (ER) | payer OTHER, SELFPAY ==
--- NOTE | ~2023-04-23 | XR_ITS ---
EXAMINATION: XR shoulder LT min 2V INDICATION: Left shoulder pain TECHNIQUE: Four views of the left shoulder are submitted. COMPARISON: 05/02/2014 FINDINGS: Normal alignment. No fracture. Glenohumeral and acromioclavicular joint spaces are normal. Soft tissues are unremarkable. IMPRESSION: 1. No acute osseous abnormality. Reviewed, dictated and finalized at location [facility]
[2023-04-23 10:38] VITALS: BP 139/99; PULSE 100; RESP 16; TEMP 36.6; O2SAT 98
--- NOTE | 2023-04-23 11:35 | ED.EXTPRO ---
HPI - Extremity Problem General Chief complaint: Extremity Problem,Nontraumatic Stated complaint: left arm/neck pain 1 hour Time Seen by Provider: 04/23/23 11:06 Source: patient Mode of arrival: ambulatory Limitations: no limitations History of Present Illness HPI Narrative: Patient is a 28-year-old female who presents the ED with report of left shoulder pain. Patient reports pain began approximately 2 hours ago. Pain extends into her left posterior shoulder/left-sided neck. Worse with movement of her left arm. Has not tried anything for the pain. Denies chest pain or shortness breath. Denies numbness or tingling. Denies history of similar pain. Denies any injury. States she may have slept on wrong. Patient is currently her . Related Data Allergies Allergy/AdvReac Type Severity Reaction Status Date / Time peanut Allergy Intermediate Itching Verified 04/23/23 10:33 tree nut Allergy Mild Itching Verified 04/23/23 10:33 wheat Allergy Mild Itching Verified 04/23/23 10:33 Review of Systems Review of Systems: CONSTITUTIONAL: Denies fever, chills, or sweats. CARDIOVASCULAR: Denies chest pain. RESPIRATORY: Denies dyspnea. GASTROINTESTINAL: Denies abdominal pain, nausea, vomiting. MUSCULOSKELETAL: See HPI. NEUROLOGIC: Denies headache, dizziness, numbness, or weakness. 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 HEAD: Normocephalic, atraumatic. NECK: Focal TTP along L sided paraspinal musculature extending into upper trapezius region, reproducing pain. No midline cervical spinal tenderness. RESPIRATORY: Airway patent, respirations nonlabored. CARDIOVASCULAR: Regular rate and rhythm without murmurs, rubs, or gallops. Radial pulses intact. MUSCULOSKELETAL: Moves all extremities. No gross deformities. Tenderness to palpation throughout posterior and superior left shoulder. No significant limited ROM of LUE. Sensation intact. Capillary refill intact. SKIN: Warm, dry, normal color. NEURO: A&O X3. Speech clear. PSYCHIATRIC: Appropriate mood and affect. Normal interaction. Course Vital Signs Vital signs: Vital Signs Temperature 98 F 04/23/23 10:38 Pulse Rate 100 04/23/23 10:38 Respiratory Rate 16 04/23/23 10:38 Blood Pressure 139/99 H 04/23/23 10:38 Pulse Oximetry 98 04/23/23 10:38 Oxygen Delivery Room Air 04/23/23 10:38 Temperature 98 F 04/23/23 10:38 Pulse Rate 100 04/23/23 10:38 Respiratory Rate 16 04/23/23 10:38 Blood Pressure 139/99 H 04/23/23 10:38 Pulse Oximetry 98 04/23/23 10:38 Oxygen Delivery Room Air 04/23/23 10:38 MDM - Extremity (Nontraumatic) MDM Narrative Medical decision making narrative: Patient?s injury is consistent with musculoskeletal etiology. Focal tenderness along left-sided cervical paraspinal musculature and trapezius muscle. No signs of neurologic or vascular compromise on physical examination. Compartments are soft without signs of compartment syndrome. XR of
[2023-04-23] MEDS: KETOROLAC (*BKC) 60 MG/2 ML VIAL IM (11:49)
[2023-04-23] MEDS: ACETAMINOPHEN 500 MG TABLET 1000 MG PO (11:49)
== END 2023-04-23 12:05 | disposition home or self-care (01) ==
PROVIDERS: Emergency Provider Physician Assistant
DX: S16.1XXA Strain of muscle, fascia and tendon at neck level, initial encounter (principal); S46.912A Strain of unspecified muscle, fascia and tendon at shoulder and upper arm level, left arm, initial encounter; Z90.49 Acquired absence of other specified parts of digestive tract; Z87.891 Personal history of nicotine dependence; X58.XXXA Exposure to other specified factors, initial encounter
CPT/HCPCS: 73030; 96372; 99283; A9270; J1885

== ENCOUNTER 2023-07-09 09:40 | Emergency (ER) | payer OTHER, SELFPAY ==
[2023-07-09 09:52] VITALS: BP 102/64; PULSE 78; RESP 16; TEMP 36.4; O2SAT 100
--- NOTE | 2023-07-09 10:04 | ED.EXTPRO ---
HPI - Extremity Problem General Chief complaint: Extremity Problem,Nontraumatic Stated complaint: both feet hurt,pop Time Seen by Provider: 07/09/23 10:04 Source: patient, RN notes reviewed and old records reviewed Mode of arrival: ambulatory Limitations: no limitations History of Present Illness HPI Narrative: 28-year-old female presents to the [facility] with complaints of feet pain for several months. Patient's reports that when she sits the pain gets worse. Has taken ibuprofen Patient also reports bilateral swelling. Denies any trauma recently. Onset (ago): month(s) Related Data Allergies Allergy/AdvReac Type Severity Reaction Status Date / Time peanut Allergy Intermediate Itching Verified 07/09/23 09:59 tree nut Allergy Mild Itching Verified 07/09/23 09:59 wheat Allergy Mild Itching Verified 07/09/23 09:59 Review of Systems Review of Systems: All systems reviewed & are unremarkable except as noted in HPI and below Constitutional: Constitutional: Reports no additional constitutional complaints Eyes: Eyes: Reports no additional eye complaints ENT: Reports system reviewed and no additional complaints, except as documented Cardiovascular: Cardiovascular: Reports no additional cardiovascular complaints, Denies chest pain and Denies dyspnea Respiratory: Respiratory: Reports no additional respiratory complaints, Denies chest congestion, Denies cough and Denies dyspnea Gastrointestinal: Gastrointestinal: Reports no additional gastrointestinal complaints, Denies abdominal pain, Denies nausea and Denies vomiting Musculoskeletal: Musculoskeletal: Reports as per HPI Integumentary/Breasts: Skin/Breast: Reports system reviewed and no additional complaints, except as docu Neurologic: Reports system reviewed and no additional complaints, except as documented Psychiatric: Psychiatric: Reports no additional psychiatric complaints Allergic/Immunologic: Allergic/Immunologic: Reports no additional allergic/immunologic complaints [facility] Past Medical History Medical History Patient denies medical problems Surgical History Surgical History History of cholecystectomy Family History Family History Mother Asthma Grandparent Asthma Cancer Depression Heart disease Other Cancer Cerebrovascular accident Sibling Depression Social History Social History Smoking status: Former smoker Tobacco type: cigarettes Living arrangements: with friend(s) Occupation/Education: occupation 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 There is no relevant family history pertinent to the patient complaint. Exam Const: General: cooperative, healthy appearing, comfortable, no acute distress, well developed, alert and well nourished Nutritional Appearance: well nourished and obese Orientation/consciousness: patient oriented x3 Limitations: no limitations HENMT: Head: normal to inspection Ears: hearing grossly normal bilaterally and external ears normal Face/Nose/Sinus: Normal external nose present, Normal nares present, Normal nasal mucous membranes and turbinates present, normal facial exam and face symmetric Face and sinus: normal facial exam and face symmetric Eyes: General: appearance normal, both eyes and all related structures Alignment and Position: alignment normal Periorbital: periorbital findings normal Pupils: Equal, round and reactive pupils present EOM: EOMs intact bilaterally Neck: Neck: normal visual inspection, full ROM, no lymphadenopathy and no meningeal signs Chest: Chest palpation & i
== END 2023-07-09 10:29 | disposition home or self-care (01) ==
PROVIDERS: Emergency Provider Nurse Practitioner
DX: M72.2 Plantar fascial fibromatosis (principal); Z87.891 Personal history of nicotine dependence
CPT/HCPCS: 99211; G0463

== ENCOUNTER 2023-07-11 09:51 | Outpatient (CLI) | payer OTHER, SELFPAY ==
--- NOTE | ~2023-07-11 | XR_ITS ---
Left foot Technique: AP and lateral views were obtained. Clinical History: Pain Findings: No acute fracture or dislocation is seen. Osseous alignment is anatomic. Joint spaces are p reserved without erosive or degenerative change. Soft tissues are unremarkable. Impression: Unremarkable left foot radiographs. Reviewed, dictated and finalized at [facility]. Impression: Unremarkable left foot radiographs.
--- NOTE | ~2023-07-11 | XR_ITS ---
Right foot Technique: AP and lateral views were obtained. Clinical History: Pain Findings: No acute fracture or dislocation is seen. Osseous alignment is anatomic. Joint spaces are p reserved without erosive or degenerative change. Soft tissues are unremarkable. Impression: Unremarkable right foot radiographs. Reviewed, dictated and finalized at [facility]. Impression: Unremarkable right foot radiographs.
== END 2023-07-11 09:52 | disposition home or self-care (01) ==
LOC: ANHIMG 09:52
PROVIDERS: Visit Provider Nurse Practitioner Family
DX: M25.561 Pain in right knee (principal); M25.562 Pain in left knee; G89.29 Other chronic pain
CPT/HCPCS: 73562; 73620

== ENCOUNTER 2023-12-07 02:52 | Emergency (ER) | payer OTHER, SELFPAY ==
[2023-12-07 02:56] VITALS: BP 134/80; PULSE 87; RESP 16; TEMP 36.4; O2SAT 100
--- NOTE | 2023-12-07 05:37 | ED.HA ---
HPI - Headache General Chief Complaint: Headache Stated Complaint: headache Time Seen by Provider: 12/07/23 05:29 History of Present Illness HPI Narrative: 28-year-old female with no other past medical history presenting to the emergency depart for evaluation of headache and some nauseousness. She states she was drinking yesterday and felt queasy to her abdomen and felt headache came on. She took some oxycodone she had left over from giving earlier this year. She states that the oxycodone did not make her headache go away and actually made her feel worse. She took several more throughout the day without any real improvement. She presents to the emergency department with nausea and vomiting. She vomited several times and states her headache actually improved after this. She has no headache presently but is in boarding still feeling nauseous without vomiting. Denies any chest pain, shortness a breath, fever, chills. No trauma or injuries. She states that she did drink on empty stomach and did not have significant oral intake for food. Related Data Allergies Allergy/AdvReac Type Severity Reaction Status Date / Time peanut Allergy Intermediate Itching Verified 07/11/23 08:03 tree nut Allergy Mild Itching Verified 07/11/23 08:03 wheat Allergy Mild Itching Verified 07/11/23 08:03 Review of Systems Review of Systems: As reviewed above PMFSH Past Medical History Medical History Patient denies medical problems Surgical History Surgical History History of cholecystectomy Family History Family History Mother Asthma Grandparent Asthma Cancer Depression Heart disease Other Cancer Cerebrovascular accident Sibling Depression Social History Social History Smoking status: Former smoker Tobacco type: cigarettes Alcohol intake: current Substance use: current Substance use type: marijuana Living arrangements: with friend(s) Occupation/Education: occupation 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 Mucous membranes moist. NECK: Supple. CHEST: [Clear to auscultation. No respiratory distress.] HEART: [Regular rate and rhythm]. No murmur heard. [Normal peripheral pulses.] ABDOMEN: [Soft, nondistended], [nontender], [No rigidity or guarding] EXTREMITIES: Normal range of motion. [No edema.] SKIN: Warm, dry, no rash. NEURO: [No focal deficits]. Alert and oriented [x3.] PSYCH: [Normal mood and affect.] Course Vital Signs Vital signs: Vital Signs Temperature 36.4 C 12/07/23 02:56 Pulse Rate 87 12/07/23 02:56 Respiratory Rate 16 12/07/23 02:56 Blood Pressure 134/80 12/07/23 02:56 Pulse Oximetry 100 12/07/23 02:56 Oxygen Delivery Room Air 12/07/23 02:56 Temperature 36.4 C 12/07/23 02:56 Pulse Rate 87 12/07/23 02:56 Respiratory Rate 16 12/07/23 02:56 Blood Pressure 134/80 12/07/23 02:56 Pulse Oximetry 100 12/07/23 02:56 Oxygen Delivery Room Air 12/07/23 02:56 MDM - Headache MDM Narrative Medical decision making narrative: 28-year-old otherwise healthy well-appearing female presenting to the emergency depart for evaluation of a headache and nauseousness. She was drinking yesterday injuring on empty stomach and do not have anything to eat. She had worsening abdominal cramping and felt nauseous so she took an oxycodone she had left over at home. [place] a headache, on and felt worse. She vomited several times today with improvement her headache. Presently she has a very minor headache that is slowly resolving but still feeling nauseous. She otherwise looks well not any acute distress. No reported head trauma or concerns for intracranial process this time as she has no red flag signs in her history or examination. An IV was established and basic blood work was obtained she was she was given Compazine, Benadryl, fluid bolus, magnesium for combination approach to nausea vomiting as well as her headache similar to a treatment of migraine headache. Patient was re-evaluated after this. test was obtained. Laboratory studies reassuring patient was re-evaluated had symptomatic resolution. At this time she is stable for discharge home with return precautions. Patient expressed understanding and was safe for discharge at this time. Lab Data 12/07/23 06:30 12/07/23 06:30 Labs: Lab Results 12/07/23 Range/Units 06:30 WBC Pending RBC Pending Hgb Pending Hct Pending MCV Pending MCH Pending MCHC Pending RDW Pending Plt Count Pending MPV Pending Immature Gran % (Auto) Pending Neut % (Auto) Pending Lymph % (Auto) Pending Gage % (Auto) Pending Eos % (Auto) Pending Baso % (Auto) Pending Lymph # (Auto) Pending Gage # (Auto) Pending Eos # (Auto) Pending Baso # (Auto) Pending Abs Immat Gran (auto) Pending Absolute Neuts (auto) Pending Absolute Nucleated RBC Pending Nucleated RBC % Pending Sodium 137 (137-145) mmol/L Potassium 3.8 (3.4-5.0) mmol/L Chloride 100 (98-107) mmol/L Carbon Dioxide 31 H (22-30) mmol/L Anion Gap 6 (4-12) mmol/L BUN 9 D (7-17) mg/dL Creatinine 0.80 (0.7-1.0) mg/dL Estim Creat Clear Calc 103 ml/min Estimated GFR > 60 (59 - ) Glucose 107 (65-110) mg/dL Calcium 9.1 (8.4-10.2) mg/dL Magnesium 2.0 (1.6-2.3) mg/dL Ethyl Alcohol < 10 (<10) mg/dL Discharge Plan Discharge Clinical Impression: Nausea & vomiting, Headache Patient Disposition: Home, Self-Care Condition: Stable Instructions: Antibiotic Form, Acute Headache (DC), Acute Nausea and Vomiting (DC) Additional Instructions: Your laboratory studies are reassuring. Return at any point with any new or worsening concerns. Prescriptions: No Action Trulicity 0.75 mg/0.5 mL pen injector 0.75 mg subcut WEEKLY Qty: 2 0RF Hold Instructions: .Provider Order Follow-up/Referrals: PHYSICIAN,RAIL SIGNAL WORKER [Primary Care Provider] - Time of Disposition: 07:09
[2023-12-07] MEDS: PROCHLORPERAZINE EDISYLATE 10 MG/2 ML VIAL IV PUSH (06:34)
[2023-12-07] MEDS: SODIUM CHLORIDE 0.9% IV 1,000 ML 999 ML IV CONT (06:34)
[2023-12-07] MEDS: diphenhydrAMINE HCl INJ 50 MG/ML VIAL 25 MG IV PUSH (06:34)
[2023-12-07] MEDS: MAGNESIUM SULF 2 GM/WATER 50ML 2 GM/50 ML BAG IVPB (06:35)
[2023-12-07 06:40] LABS: Basophils Percent Auto 0.4 % (0.2-1.2); Eosinophils Percent Auto 0.5 % (0-4.4); Hematocrit 35.8 % (37.0-47.0); Hemoglobin 11.5 g/dL (12.0-15.0); Immature Granulocyte Absolute 0.01 K/mm3 (0.00-0.031); Immature Granulocyte Percent A 0.1 % (0-0.5); Lymphocytes Percent Auto 19.9 % (18.3-44.2); Mean Corpuscular HGB Conc 32.1 g/dl (32-36); Mean Corpuscular Hemoglobin 26.1 pg (26-34); Mean Corpuscular Volume 81.4 fl (80-100); Mean Platelet Volume 11.7 fl (7.4-10.4); Monocytes Absolute Auto 0.4 K/mm3 (0.1-0.6); Neutrophils Absolute Auto 5.6 K/mm3 (1.3-6.7); Neutrophils Percent Auto 74.1 % (45.5-73.1); Platelet Count Result 258 k/mm3 (150-375); White Blood Count 7.5 K/mm3 (4.5-10.0)
[2023-12-07 06:52] LABS: Anion Gap 6 mmol/L (4-12); Blood Urea Nitrogen 9 mg/dL (7-17); Calcium 9.1 mg/dL (8.4-10.2); Carbon Dioxide 31 mmol/L (22-30); Chloride 100 mmol/L (98-107); Estimated CRCL calculation 103 ml/min; Estimated Glomerular Filt Rate > 60; Glucose 107 mg/dL (65-110); Potassium 3.8 mmol/L (3.4-5.0); Sodium 137 mmol/L (137-145)
[2023-12-07 06:54] LABS: Ethanol < 10 mg/dL (<10)
[2023-12-07 07:26] LABS: Anisocytosis 1+; Platelet Estimate Adequate (Adequate); Schistocytes None Seen
[2023-12-07 07:51] VITALS: BP 132/74; PULSE 80; RESP 19; O2SAT 97
== END 2023-12-07 07:53 | disposition home or self-care (01) ==
PROVIDERS: Emergency Provider Student in an Organized Health Care Education/Training Program
DX: R51.9 Headache, unspecified (principal); R11.2 Nausea with vomiting, unspecified; Z90.49 Acquired absence of other specified parts of digestive tract; Z87.891 Personal history of nicotine dependence
CPT/HCPCS: 36415; 80048; 82077; 83735; 85025; 96365; 96375; 99284; J0780; J1200; J3475; J7030

== ENCOUNTER 2024-02-11 08:18 | Emergency (ER) | payer OTHER, SELFPAY ==
--- NOTE | 2024-02-11 08:22 | ED_ITS ---
HPI - URI/Sore Throat General Chief Complaint: Upper Respiratory Infection Stated Complaint: Sore Throat Time Seen by Provider: 02/11/24 08:22 Source: patient Mode of arrival: ambulatory Limitations: no limitations History of Present Illness HPI Narrative: Patient is a 28-year-old female who presents with 2 days of right ear pain and sore throat when swallowing. Patient also concern for requesting a pr egnancy test. Denies any fever, chills, nausea, vomiting, diarrhea. Patient is actively gagging herself and spitting up phlegm. Related Data Allergies Allergy/AdvReac Type Severity Reaction Status Date / Time peanut Allergy Intermediate Itching Verified 02/11/24 08:23 tree nut Allergy Mild Itching Verified 02/11/24 08:23 wheat Allergy Mild Itching Verified 02/11/24 08:23 Review of Systems Review of Systems: All systems reviewed & are unremarkable except as noted in HPI and below Constitutional: Constitutional: Denies body ache(s), Denies chills, Denies fatigue, Denies fever(s), Denies headache(s), Denies malaise and Denies weakness Eyes: Eyes: Denies blurry vision, Denies itchy eyes and Denies loss of vision ENT: Reports otalgia, Denies headache(s), Denies nasal congestion, Denies sinus pain and Reports sore throat Cardiovascular: Cardiovascular: Denies chest pain, Denies irregular heart rhythm and Denies dyspnea Respiratory: Respiratory: Denies cough and Denies dyspnea Gastrointestinal: Gastrointestinal: Denies abdominal pain, Denies diarrhea, Denies nausea and Denies vomiting Musculoskeletal: Musculoskeletal: Denies back pain, Denies myalgias and Denies arthralgias Integumentary/Breasts: Skin/Breast: Denies pruritus and Denies rash Neurologic: Denies headache(s), Denies loss of vision and Denies weakness Psychiatric: Psychiatric: Reports no additional psychiatric complaints Endocrine: Endocrine: Denies fatigue Allergic/Immunologic: Allergic/Immunologic: Denies itchy eyes PMFSH Past Medical History Medical History Patient denies medical problems Surgical History Surgical History History of cholecystectomy Family History Family History Mother Asthma Grandparent Asthma Cancer Depression Heart disease Other Cancer Cerebrovascular accident Sibling Depression Social History Social History Smoking status: Former smoker Tobacco type: cigarettes Alcohol intake: current Substance use: current Substance use type: marijuana Living arrangements: with friend(s) Occupation/Education: occupation 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 There is no relevant family history pertinent to the presenting complaint. Exam Const: General: cooperative, healthy appearing, comfortable, no acute distress and well nourished Nutritional Appearance: well nourished Orientation/consciousness: patient oriented x3 Limitations: no limitations HENMT: Head: normal to inspection, normocephalic and atraumatic Ears: hearing grossly normal bilaterally, external ears normal, TM's normal bilaterally, EAC's normal and no periauricular adenopathy Face/Nose/Sinus: Normal external nose present, Abnormal mucous membranes and turbinates present erythematous bilateral and diffuse, normal facial exam, sinuses nontender and face symmetric Face and sinus: normal facial exam, sinuses nontender and face symmetric Mouth: Yes Normal oral and palatal mucosa present, Yes lip normal, Yes tongue normal, Yes Normal salivary glands and ducts present, Yes oropharynx normal and Yes moist mucous membranes Teeth and gingiva: dentition normal Throat: uvula midline, abnormal tonsil bilateral erythema and hypertrophy 3+ and posterior oropharynx abnormal erythema Eyes: General: appearance normal, both eyes and all related structures Alignment and Position: alignment normal and position normal Periorbital: periorbital findings normal Eyelids: eyelids normal Pupils: Equal, round and reactive pupils present Neck: Neck: normal visual inspection, full ROM, no lymphadenopathy and supple Chest: Chest palpation & inspection: normal inspection of the chest and normal palpation of entire chest wall Resp: Effort & Inspection: normal respiratory effort and able to speak in complete sentences Auscultation: clear to auscultation bilaterally, no crackles, no rales, no rhonchi and no wheezes Cardio: Rate: regular rate Rhythm: regular rhythm Heart sounds: S1 normal heart sound present and S2 normal heart sound present GI: Inspection: normal to inspection Skin: General skin exam: normal color and no rashes or lesions noted Neuro: General: patient oriented x3 and moves all extremities Cranial ner ves: Yes Equal, round and reactive pupils present Speech: normal speech Gait exam (Neuro): Normal gait present Extrem: General: normal to inspection, full ROM and no edema Psych: Appearance: grossly normal and well kempt Mental Status: mental status grossly normal Speech and movement: Normal speech and movement present Affect: normal affect Attitude: cooperative Thought process: Normal thought process present Course Course Emergency Course: Discharge instructions reviewed with patient, as well as provided in writing per nursing staff. The instructions also include specific and strict return/GO TO THE ER as well as f/u information. All questions have been answered, and the patient deny any further questions with discharge and discharge plan. Portions of this record may have been created with voice recognition software Level of Care: Express Care Visit Vital Signs Vital signs: Vital Signs Temperature 35.9 C L 02/11/24 08:34 Pulse Rate 107 H 02/11/24 08:34 Respiratory Rate 16 02/11/24 08:34 Blood Pressure 127/81 02/11/24 08:34 Pulse Oximetry 99 02/11/24 08:34 Oxygen Delivery Room Air 02/11/24 08:34 Temperature 35.9 C L 02/11/24 08:34 Pulse Rate 107 H 02/11/24 08:34 Respiratory Rate 16 02/11/24 08:34 Blood Pressure 127/81 02/11/24 08:34 Pulse Oximetry 99 02/11/24 08:34 Oxygen Delivery Room Air 02/11/24 08:34 Reviewed MDM - URI/Sore Throat MDM Narrative Medical decision making narrative: Patient is a 28-year-old female with sore throat and ear pain, positive strep chronic care. Will treat with antibiotics. Pt well hydrated appearing, in no respiratory distress, hemodynamically stable. Recommend supportive care. The patient is stable at time of discharge the clinical impression was discussed and the patient was given the opportunity to ask questions, which were addressed as completely as possible given the information available at present. Anticipatory guidance and return to care precautions were discussed and the importance of primary care follow-up was stressed and encouraged. The patient voiced understanding of the plan, indications to return, and the need for follow-up. Differential diagnosis considered: Garsia virus, strep pharyngitis, allergic rhinitis, upper respiratory tract infection, sinusitis, rhinosinusitis, nasopharyngitis. viral pharyngitis, otitis media, otitis externa, otitis effusion, foreign body, cerumen impaction, viral syndrome, and influenza.? Exam findings show no acute concerns or changes; patient is non-toxic appearing and is in no distress.? Patient is appropriate for outpatient treatment and follow- up.? Medical Records Attestation: I reviewed the patient's medical records. Lab Data Attestation: I reviewed the patient's lab results. Labs: Lab Results 02/11/24 02/11/24 Range/Units 08:33 08:42 POC Urine HCG, Qual Negative (Negative) POC Grp A Strep Screen Positive (Negative) Discharge Plan Discharge Clinical Impression: Pharyngitis Qualifiers: Pharyngitis/tonsillitis etiology: streptococcus Qualified Code(s): J02.0 - Streptococcal pharyngitis Patient Disposition: Home, Self-Care Condition: Stable Instructions: Strep Throat (ED) Additional Instructions: Your rapid strep swab was positive today at [facility]. After 24 hours on antibiotics throw tooth brush away and start using a new one. Wash your sheets and cup/water bottle that is used daily. Do not share drinks. Take Motrin alternating with Tylenol for pain and fever alternating every 4 hours. Increase fluids, avoid caffeine. Other symptomatic treatments include: -Antihistamine medication such as Benadryl at night and Zyrtec/Claritin/Laurita during the day can help improve symptoms. -Use Flonase twice a day for 5 days then daily to help reduce the inflammation and dry up your sinuses. -You can also use Sudafed or Mucinex. Be sure to drink plenty of water with these medications at least 8 ounces with every dose and it is important to drink 8 to 10 glasses of water per day. Water is a natural decongestant -Eat and drink things that are easy to swallow, like tea or soup, or popsicles. -Oral rinses such as: Salt water gargles and/or may use topical anesthetic (eg. Chloraseptic spray) or lozenges to relieve dryness or throat pain). -Frequent hand washing or hand railroad baggage porter is one of the best ways to prevent spread of infection. -Using a vaporizer or humidifier at night will also help thin secretions and help with coughing up phlegm. -Follow up with primary care provider in 3-5 days if condition is not improving - For new or worsening symptoms go directly to the nearest ER If you are having a hard time finding a physician please call our [facility] liaison at [phone]. Patient Language: Turkmen Prescriptions: New amoxicillin 500 mg capsule 500 mg PO BID 10 Days Qty: 20 0RF No Action Trulicity 0.75 mg/0.5 mL pen injector 0.75 mg subcut WEEKLY Qty: 2 0RF Follow-up/Referrals: PHYSICIAN,DYE LINE OPERATOR [Primary Care Provider] - Kamran Cho MD [Physician] - 3 Days (Establish care) Stand Alone Forms: Work/School Release IP Time of Disposition: 08:52
[2024-02-11 08:34] VITALS: BP 127/81; PULSE 107; RESP 16; TEMP 35.9; O2SAT 99
[2024-02-11 08:37] LABS: BEDSIDEPREGUCG Negative (Negative)
[2024-02-11 08:44] LABS: EDSTREPNEGPOS1 Positive (Negative)
== END 2024-02-11 08:53 | disposition home or self-care (01) ==
PROVIDERS: Emergency Provider Nurse Practitioner Family
DX: J02.0 Streptococcal pharyngitis (principal); Z87.891 Personal history of nicotine dependence
CPT/HCPCS: 81025; 87880; 99213; G0463

== ENCOUNTER 2024-12-10 11:55 | Emergency (ER) | payer OTHER, SELFPAY ==
--- OUTSIDE RECORDS SUMMARY | 2024-08-12 05:00 | XMS_ITS ---
Author Organization [facility] Address [address] [place] [address] Care Team Providers Care Weaver Hand Name Role Phone Kelly Vaughn Primary Care Provider Trinh Jorgensen [phone] REASON FOR VISIT UDS, labs and vitals Encounters Encounter Location Date Provider Diagnosis [place] [address] [place] [address] 08/12/2024 Trinh Jorgensen Plan Of Treatment No Information Progress Notes * Kimberly ESCAMILLAnDOB:[birth year] (29 yo F)Acc No.[id number]:08/12/2024 UNLOCKED PROGRESS NOTE Patient: Leonarda HERNANDEZ Provider: Mendez Jorgensen DNP, APRN, PMHNP-BC :1995 A ge:29 Y S ex:Female Date:08/12/2024 Phone: Address:[address], [place] Pcp:Kelly Vaughn Subjective: * Chief Complaints: * 1 . UDS, labs and vitals. * Medical History: Objective: * Vitals: Assessment: Plan: * Treatment: * * Electronic signature of Darlin Mahmood [id number] on 12/10/2024 at 01:50 PM CDT Sign off status: Pending * Provider: Mendez Jorgensen DNP, APRN, PMHNP-BC Date: 0 08/12/2024 Generated for Printing/Faxing/eTransmitting on: 1 01:50 PM CDT
--- NOTE | ~2024-12-10 | XR_ITS ---
EXAMINATION: XR knee LT 3V, 12/10/2024 14:00 CDT HISTORY: CHRONIC LT KNEE PAIN WORSEN PAST COUPLE MONTHS COMPARISON: No comparisons available. Findings: No acute fracture or malalignment. No significant degenerative changes. Soft tissues unremarkable. Impression: No acute fracture or malalignment. Reviewed, dictated and finalized at location P. Impression: No acute fracture or malalignment.
[2024-12-10 12:55] VITALS: BP 120/82; PULSE 76; RESP 16; TEMP 36.8; O2SAT 98
--- OUTSIDE RECORDS SUMMARY | 2024-12-10 13:50 | XMS_ITS | Clinical Summary ---
Author Organization [facility] Address [address] [place] [address] Phone Care Team Providers Care Network Systems Integrator Name Role Phone Provider, Unknown Primary Care Provider Unavaila ble Social History Tobacco Use Types Packs/Day Years Used Date Smoking Tobacco: Never Assessed Comments Unknown Sex and Gender Information Value Date Recorded Sex Assigned at Not on file Legal Sex Female 10:43 PM CDT Gender Identity Not on file Sexual Orientation Not on file Plan of Treatment Not on file Care Teams Network Systems Integrator Relationship Specialty Start Date End Date Provider, Unknown UNKNOWN PCP - General 06/14/16
--- OUTSIDE RECORDS SUMMARY | 2024-12-10 13:50 | XMS_ITS | Clinical Summary ---
Author Organization [facility] [address] [facility] Address [address] [place] [address] Care Team Providers Care Psychodramatist Name Role Phone Greta Valentin Unavailable [phone] Unknown, Notinfile Primary Care Provider Unavail able Allergies Active Allergy Reactions Criticality Noted Date Comments Nuts Swelling Medium 12/30/2020 peanuts, coconuts, almonds, all nuts Other Other (See comments) Low 12/15/2020 Reaction: Reaction: Medications docusate sodium (COLACE) 100 mg capsuleIndicati ons:constipatio n Take 1 capsule (100 mg total) by mouth 2 (two) times a day 60 capsule 01/05/2021 Active acetaminophen (TYLENOL) 325 mg tabletIndicatio ns:Pain Take 3 tablets (975 mg total) by mouth every 6 (six) hours as needed for pain 30 tablet 1 07/27/2022 Active ibuprofen (ADVIL,MOTRIN) 600 mg tabletIndicatio ns:Cramps Take 1 tablet (600 mg total) by mouth every 6 (six) hours as needed for pain 30 tablet 1 07/27/2022 Active oxyCODONE (ROXICODONE) 5 mg immediate release tabletIndicatio ns:Pain Take 1 tablet (5 mg total) by mouth every 6 (six) hours as needed for pain 15 tablet 07/27/2022 Active Active Problems Problem Noted Date Diagnosed Date Placental abruption in third trimester 3 35 weeks gestation of 07/25/2022 Delivery by emergency section 3 Encounter to establish care 01/11/2020 Assessment & Plan (01/11/2020 10:11 AM DATA PROCESSING MANAGER): Encouraged her at length to contact supervisor hanging and trimming to discuss further evaluation and treatment. Chronic pain of left knee 01/11/2020 Assessment & Plan (01/11/2020 10:10 AM DATA PROCESSING MANAGER): Advised mri left knee, will notify of results as available. Advised her to continue with bid/prn naproxen. Advised otc knee sleeve, RICE therapy. Exposure to head lice 01/11/2020 Assessment & Plan (01/11/2020 10:09 AM DATA PROCESSING MANAGER): Letter printed for work Immunizations Immunization Administration Dates Next Due Tdap 08/05/2017 Surgical History Surgery Date Site/Laterality Comments VAGINAL DELIVERY three Medical History Medical History Date Comments Abdominal pain nausea & pain wi th fatty foods Gall bladder pain Orthodontics wears braces Last menstrual period (LMP) > 10 days ago some time in November 2020, not certain LMP Piercing septal Depression no meds, sees ps ychiatrist, controlled at this time 12/30/20 Irregular menstruation Back pain Deaf, right congenital, 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 2-4 times a month 01/05/2021 Q2: How many drinks containi ng alcohol do you have on a typical day when you are drinking? 3 or 4 01/05/2021 Q3: How often do you have si x or more drinks on one occasion? Never 01/05/2021 PHQ-2 Answer Date Recorded PHQ-2 Total Score (If total score is 3 or more points, staff should administer the PHQ-9) 2 01/11/2020 [place] Depression Scale Answer Date Recorded [place] Depression Scale Total 17 07/26/2022 The thought of harming myself has occurred to me . Never 07/26/2022 Comments No Sex and Gender Information Value Date Recorded Sex Assigned at Not on file Legal Sex Female 7:44 AM DATA PROCESSING MANAGER Gender Identity Not on file Sexual Orientation Not on file Obstetrics History Para Term AB IAB SAB Ectopic Multiple Livin g Live Births 5 4 3 1 1 1 4 1 Date Outcome GA Total Labor Labor/2nd/3rd Weight Sex Type Anes PTL Heidi A1 A5 Name Clin Term Term SAB Term Y 023 35w 3d 0h 01m 0h 01m 2.57 kg (5 lb 10.7 oz) M CS-Un spec Genera l N Livin g 2 5 Jayda MENA Rai, Jodie, MD Complications:Abruptio Place nta Delivery Location:[facility] ([facility]) Last Filed Vital Signs Vital Sign Reading Time Taken Comments Blood Pressure 136/70 07/27/2022 10:17 AM CDT Pulse 88 07/27/2022 10:17 AM CDT Temperature 36.9 C (98.5 F) 07/27/2022 10:17 AM CDT Respiratory Rate 16 07/27/2022 10:17 AM CDT Oxygen Saturation 98% 07/27/2022 10:17 AM CDT Inhaled Oxygen Concentration - - Weight 89.7 kg (197 lb 12 oz) 03/30/2022 11:41 A M DATA PROCESSING MANAGER Height 160 cm (5' 3) 03/30/2022 11:41 AM DATA PROCESSING MANAGER Body Mass Index 35.03 03/30/2022 11:41 AM DATA PROCESSING MANAGER Plan of Treatment Health Maintenance Due Date Last Done Comments Cervical Cancer Screening 1994 Hepatitis C Screening 1994 Varicella Vaccines (1 of 2 - 13+ 2-dose series) 2007 Hepatitis B Screening 2012 Regular Well Visit/Exam 18-64 2012 Pneumococcal vaccine <65 (1 of 2 - PCV) 2013 HPV Vaccines (1 - 3-dose SCDM series) 2021 Depression Screening 07/27/2023 07/26/2022, 01/11/20 20 Influenza Vaccine (#1) 2024 DTaP/Tdap/Td Vaccine (2 - Td or Tdap) 08/06/202712/2017 Insurance [facility] [employer] [employer] [employer] Address: [facility] [address] [place] [address] [facility] Advance Directives For more information, please contact: [phone] * Full Code (Latest Code Status on File) Date Activated Date Inactivated Comments 07/25/2022 6:15 AM 07/27/2022 4:55 PM Care Teams Psychodramatist Relationship Specialty Start Date End Date Unknown, Notinfile PCP - General 03/15/21 Greta Valentin PA Wastewater Operator 02/24/20
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
--- NOTE | 2024-12-10 15:50 | ED_ITS ---
HPI - General Adult General Chief complaint: Unspecified Stated complaint: FATIGUE AND L KNEE PAIN Time Seen by Provider: 12/10/24 14:21 Source: patient Mode of arrival: ambulatory Limitations: no limitations History of Present Illness HPI narrative: This is a 29-year-old female, who denies significant past medical history, presenting to the emergency department complaining of chronic left knee pain and swelling. She describes the pain as dull and intermittently cramping, worse with persistent movement, located at the posterior aspect of the left knee. She denies any known injury to the knee. She denies fevers, chills, rapid swelling, lower leg swelling, history of DVT, PE, use of oral contraceptive, recent surgery or prolonged travel. She has no other complaints at this time. Related Data Allergies Allergy/AdvReac Type Severity Reaction Status Date / Time peanut Allergy Intermediate Itching Verified 12/10/24 12:58 tree nut Allergy Mild Itching Verified 12/10/24 12:58 wheat Allergy Mild Itching Verified 12/10/24 12:58 Review of Systems Review of Systems: All systems reviewed & are unremarkable except as noted in HPI and below PMFSH Past Medical History Medical History Patient denies medical problems Surgical History Surgical History History of cholecystectomy Family History Family History Mother Asthma Grandparent Asthma Cancer Depression Heart disease Other Cancer Cerebrovascular accident Sibling Depression Social History Social History Smoking status: Former smoker Tobacco type: cigarettes Alcohol intake: current Substance use: current Substance use type: marijuana Living arrangements: with friend(s) Occupation/Education: occupation 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 HEAD: Normocephalic, atraumatic. EYES: PERRLA and EOMI. CHEST: Clear to auscultation. No respiratory distress. No wheezes rales or rhonchi HEART: Regular rate and rhythm. No murmur heard. Normal peripheral pulses. EXTREMITIES: Mild anterior swelling of the left knee compared to the right without tenderness or visible deformity. Range of motion of the left knee is normal. There is no noted mentis laxity of the collateral, anterior or posterior cruciate ligaments. Axial rotation of the left knee causes clicking and some catching. There is tenderness to palpation over the hamstring tendons primarily at the lateral aspect. Normal range of motion. No edema. SKIN: Warm, dry, no rash. NEURO: No focal deficits. Alert and oriented x3. PSYCH: Normal mood and affect. Course Course Emergency Course: 15:53 - X-ray left knee negative for fracture, dislocation or significant degenerative changes. I suspect muscular strain with tenderness to palpation over the posterior ligaments of the knee. Wells score 0. I do not suspect a DVT. Will discharge with recommendation for NSAIDs, lidocaine patches, muscle relaxers and recommendation for primary care follow-up. I discussed these findings and recommendations with the patient. I discussed return and emergency precautions including signs/symptoms of septic arthritis and neurovascular compromise. The patient voiced understanding and is comfortable with the plan. All questions answered to her satisfaction. Vital Signs Vital signs: Vital Signs Temperature 98.2 F 12/10/24 12:55 Pulse Rate 76 12/10/24 12:55 Respiratory Rate 16 12/10/24 12:55 Blood Pressure 120/82 12/10/24 12:55 Pulse Oximetry 98 12/10/24 12:55 Oxygen Delivery Room Air 12/10/24 12:55 Temperature 98.2 F 12/10/24 12:55 Pulse Rate 74 12/10/24 16:20 Respiratory Rate 16 12/10/24 16:20 Blood Pressure 120/82 12/10/24 12:55 Pulse Oximetry 100 12/10/24 16:20 Oxygen Delivery Room Air 12/10/24 12:55 Medical Decision Making MDM Narrative Medical decision making narrative: Plan: Imaging, pain control, primary care follow-up Differential Diagnosis Differential Diagnosis: Fracture, osteoarthritis, meniscal tear, muscular strain, other Vital Signs Vital Signs: Vital Signs Temperature 98.2 F 12/10/24 12:55 Pulse Rate 76 12/10/24 12:55 Respiratory Rate 16 12/10/24 12:55 Blood Pressure 120/82 12/10/24 12:55 Pulse Oximetry 98 12/10/24 12:55 Oxygen Delivery Room Air 12/10/24 12:55 Temperature 98.2 F 12/10/24 12:55 Pulse Rate 74 12/10/24 16:20 Respiratory Rate 16 12/10/24 16:20 Blood Pressure 120/82 12/10/24 12:55 Pulse Oximetry 100 12/10/24 16:20 Oxygen Delivery Room Air 12/10/24 12:55 Discharge Plan Discharge Clinical Impression: Chronic pain of left knee, Hamstring strain Patient Disposition: Home Condition: Stable Instructions: Antibiotic Form, Knee Pain (ED) Additional Instructions: You were seen in the emergency department. An x-ray of the knee was not concerning for fracture or dislocation. I suspect muscular strain as the cause of your pain. I recommend lidocaine patches, NSAIDs, muscle relaxers and follow- up with a primary care doctor. If you develop fevers with severe pain and swelling, the leg/foot appears blue/cold, or if you have other emergent concerns for life, limb, or eyesight, return to the emergency department. Patient Language: Cambodian Prescriptions: New lidocaine 5 % adhesive patch,medicated 1 patch topical DAILY Qty: 30 0RF Rx Instructions: leave on most painful area for up to 12 hrs cyclobenzaprine 10 mg tablet 10 mg PO BID PRN (Reason: muscle spasm) Qty: 20 0RF naproxen 500 mg tablet 500 mg PO BID PRN (Reason: pain) Qty: 20 0RF No Action amoxicillin 500 mg capsule 500 mg PO BID 10 Days Qty: 20 0RF Trulicity 0.75 mg/0.5 mL pen injector 0.75 mg subcut WEEKLY Qty: 2 0RF Follow-up/Referrals: PHYSICIAN,FULL STACK PHP DEVELOPER [Primary Care Provider, Internal Medicine] Misti Powell DO [Physician, Family Practice] - 2 Weeks Time of Disposition: 15:53
[2024-12-10 16:20] VITALS: PULSE 74; RESP 16; O2SAT 100
--- OUTSIDE RECORDS SUMMARY | 2024-12-10 16:43 | XMS_ITS | Clinical Summary ---
Author Organization [facility] [address] [facility] Address [address] [place] [address] Care Team Providers Care Location Man Name Role Phone Greta Valentin Unavailable Unknown, Notinfile Primary Care Provider Unavail able [...] 01/11/2020 Assessment & Plan (01/11/2020 10:11 AM LOCKER ROOM SUPERVISOR): Encouraged her at length to contact physical therapy nurse to discuss further evaluation and treatment. Chronic pain of left knee 01/11/2020 Assessment & Plan (01/11/2020 10:10 AM LOCKER ROOM SUPERVISOR): Advised mri left knee, will notify of results as available. Advised her to continue with bid/prn naproxen. Advised otc knee sleeve, RICE therapy. Exposure to head lice 01/11/2020 Assessment & Plan (01/11/2020 10:09 AM LOCKER ROOM SUPERVISOR): Letter printed for work Immunizations Immunization Administration [...] staff should administer the PHQ-9) 2 01/11/2020 Earp Depression Scale Answer Date Recorded Earp Depression Scale Total 17 07/26/2022 The thought of harming myself has occurred to me . Never 07/26/2022 Comments No Sex and Gender Information Value Date Recorded Sex Assigned at Not on file Legal Sex Female 7:44 AM LOCKER ROOM SUPERVISOR Gender Identity Not on file Sexual Orientation [...] Rai, Jodie, MD Complications:Abruptio Place nta Delivery Location:[facility] ([facility]) Last Filed Vital Signs Vital [...] lb 12 oz) 03/30/2022 11:41 A M LOCKER ROOM SUPERVISOR Height 160 cm (5' 3) 03/30/2022 11:41 AM LOCKER ROOM SUPERVISOR Body Mass Index 35.03 03/30/2022 11:41 AM LOCKER ROOM SUPERVISOR Plan of Treatment Health Maintenance Due Date [...] (2 - Td or Tdap) 08/06/202712/2017 Insurance [facility] [employer] Address: [facility] [id number] [place] [address] [facility] Advance Directives For more information, please contact: [phone] * Full Code (Latest Code Status on File) Date Activated Date Inactivated Comments 07/25/2022 6:15 AM 07/27/2022 4:55 PM Care Teams Location Man Relationship Specialty Start Date End Date Unknown, Notinfile PCP - General 03/15/21 Greta Valenitn PA Behavioral Health Assistant 02/24/20
--- OUTSIDE RECORDS SUMMARY | 2024-12-10 16:43 | XMS_ITS | Clinical Summary ---
Author Organization [facility] Address [address] [place] [address] Phone Care Team Providers Care Resident Hall Director Name Role Phone Provider, Unknown Primary Care Provider Unavaila ble Social History Tobacco Use Types Packs/Day Years Used Date Smoking Tobacco: Never Assessed Comments Unknown Sex and Gender Information Value Date Recorded Sex Assigned at Not on file Legal Sex Female 10:43 PM CDT Gender Identity Not on file Sexual Orientation Not on file Plan of Treatment Not on file Care Teams Resident Hall Director Relationship Specialty Start Date End Date Provider, Unknown UNKNOWN PCP - General 06/14/16
--- OUTSIDE RECORDS SUMMARY | 2024-12-10 16:43 | XMS_ITS | Data Portability ---
Author Organization [facility] , [facility] Address [address] [place] [address] Care Team Providers Care Ophthalmic Asst Name Role Phone [facility] Manager Shop Assessment No assessment recorded. Plan of Treatment Reminders Order Date Submit Date Provider Last Modified By Organization Details Last Modified Time Details Appointments None recorded. Lab CBC w/ auto diff 2022 023 [employer], [address] [place], [address], 3 10:45:03 CBC w/ auto diff 2022 023 [place] [address] [employer], [address] [place], [address], 3 16:22:48 Referral None recorded. Procedures None recorded. Surgeries None recorded. Imaging None recorded. Medication Orders 28 mg-800 mcg tablet 2022 023 [facility] #[id number], [address] [place], [place], [id number], 3 08:46:23 Zoloft 50 mg tablet 2022 023 [email or web address] [id number] [facility] #[id number], [address] [place], [place], [id number], 3 16:44:31 Patient TargetsNo targets recorded. Patient Instructions Encounter Date Encounter Id Patient Instructions Last Modified By Organization Details Last Modified Time 06/14/2022 [id number] edinburgh depression scale* [email or web address] Not available 06/18/2022 16:06:17 07/20/2022 [id number] Reports good movement, no Leakage of fluids no vaginal bleeding. labor precautions discussed, precautions discussed, patient to come back if decreased movement leakage of fluid or vaginal bleeding. She had insomnia I recommend unisom. [email or web address] Not available 07/20/2022 12:07:49 08/09/2022 [id number] Care at Home With Your Baby: Care Instructions [email or web address] Not available 08/09/2022 16:25:41 09/04/2022 [id number] after : exercises Not available 09/04/2022 13:11:38 depression after childbirth: care instructions Not available 09/04/2022 13:11:38 Reason for Referral None Reported. Results Created Date Observation Date Name Description Value Unit Range Abnormal Flag Note LastModifiedBy Organization Detail LastModifiedTime 06/09/1906/11/2022 GLUCO SE, GESTA MINH L SCREE N (50G) -135 CUTOF F glucose, gestational screen (50g)-135 cutoff 111 mg/dL <135 normal Not Available [facility] [place] [address] [place], [address], 06/11/2022 18:18:29 06/09/1906/11/2022 CBC (INCL UDES DIFF/ PLT) white blood cell count 9.2 thous and/u L 3.8-10 .8 normal Not Available [facility] [place] [address] [address] [place], [address], 06/11/2022 18:18:29 06/09/1906/11/2022 CBC (INCL UDES DIFF/ PLT) red blood cell count 3.32 rafaela on/uL 3.80-5 .10 low Not Available [facility] [address] [place], [address], 06/11/2022 18:18:29 06/09/19 23 06/11/2022 CBC (INCL UDES DIFF/ PLT) hemoglobin 9.4 g/dL 11.7-1 5.5 low Not Available [address], [address], 06/11/2022 18:18:29 06/09/19 23 06/11/2022 CBC (INCL UDES DIFF/ PLT) hematocrit 27.8 % 35.0-4 5.0 low Not Available [address], [address], 06/11/2022 18:18:29 06/09/19 23 06/11/2022 CBC (INCL UDES DIFF/ PLT) MCV 83.7 fL 80.0-1 00.0 normal Not Available [address], [address], 06/11/2022 18:18:29 06/09/19 23 06/11/2022 CBC (INCL UDES DIFF/ PLT) MCH 28.3 pg 27.0-3 3.0 normal Not Available [address], [address], 06/11/2022 18:18:29 06/09/19 23 06/11/2022 CBC (INCL UDES DIFF/ PLT) MCHC 33.8 g/dL 32.0-3 6.0 normal Not Available [address], [address], 06/11/2022 18:18:29 06/09/19 23 06/11/2022 CBC (INCL UDES DIFF/ PLT) RDW 12.7 % 11.0-1 5.0 normal Not Available [address], [address], 06/11/2022 18:18:29 06/09/19 23 06/11/2022 CBC (INCL UDES DIFF/ PLT) platelet count 212 thous and/u L 140-40 0 normal Not Available [address], [address], 06/11/2022 18:18:29 06/09/19 23 06/11/2022 CBC (INCL UDES DIFF/ PLT) MPV 11.4 fL 7.5-12 .5 normal Not Available [address], [address], 06/11/2022 18:18:29 06/09/19 23 06/11/2022 CBC (INCL UDES DIFF/ PLT) absolute neutrophils 6744 cells /uL 1500-7 800 normal Not Available [address], [address], 06/11/2022 18:18:29 06/09/19 23 06/11/2022 CBC (INCL UDES DIFF/ PLT) absolute lymphocytes 1757 cells /uL 850-39 00 normal Not Available [address], [address], 06/11/2022 18:18:29 06/09/19 23 06/11/2022 CBC (INCL UDES DIFF/ PLT) absolute monocytes 396 cells /uL 200-95 0 normal Not Available [address], [address], 06/11/2022 18:18:29 06/09/19 23 06/11/2022 CBC (INCL UDES DIFF/ PLT) absolute eosinophils 285 cells /uL 15-500 normal Not Available [address], [address], 06/11/2022 18:18:29 06/09/19 23 06/11/2022 CBC (INCL UDES DIFF/ PLT) absolute basophils 18 cells /uL 0-200 normal Not Available [address], [address], 06/11/2022 18:18:29 06/09/19 23 06/11/2022 CBC (INCL UDES DIFF/ PLT) neutrophils 73.3 % normal Not Available [facility] [address], [address], 06/11/2022 18:18:29 06/09/19 23 06/11/2022 CBC (INCL UDES DIFF/ PLT) lymphocytes 19.1 % normal Not Available [facility] [address], [address], 06/11/2022 18:18:29 06/09/19 23 06/11/2022 CBC (INCL UDES DIFF/ PLT) monocytes 4.3 % normal Not Available [facility] [address], [address], 06/11/2022 18:18:29 06/09/19 23 06/11/2022 CBC (INCL UDES DIFF/ PLT) eosinophils 3.1 % normal Not Available [facility] [address], [address], 06/11/2022 18:18:29 06/09/19 23 06/11/2022 CBC (INCL UDES DIFF/ PLT) basophils 0.2 % normal Not Available [facility] [address], [address], 06/11/2022 18:18:29 06/09/19 23 06/11/2022 HIV 1/2 ANTIG EN/AN TIBOD Y,FOU RTH GENER ATION W/RFL HIV Ag/Ab, 4TH gen NON-RE ACTIVE non-re active normal HIV-1 antig en and HIV-1 /HIV- 2 antib odies were not detec moses. There is no labor atory evide nce of HIV infec tion. CARIDAD Wolff NOTE: This infor arianna n has been discl osed to you from recor bong whose confi denti ality may be prote cted by state law. If your state requi res such prote ction , then the state law prohi bits you from lawson nuñez er discl osure of the infor matio n witho ut the speci fic writt en conse nt of the perso n to whom it perta ins, or as other treviño permi tted by law. A gener al autho liborio ion for the relea se of medic al or other infor matio n is NOT suffi cient for this purpo se. For addit ional infor matio n pleas e refer to http: //[facility]no[facility]my n.que stdia gnost ics.c om/fa q/FAQ 106 (This link is being provi ded for infor matio nal/ educa minh l purpo ses only. ) The perfo rmanc e of this assay has not been clini fatemeh valid ated in patie nts less than 2 years old. Not Available [facility] [address] [place], [address], 06/11/2022 18:18:30 06/09/19 23 06/11/2022 RPR (DX) W/REF L TITER AND CONFI RMATO RY TESTI NG RPR (DX) w/refl titer and confirmatory testing NON-RE ACTIVE non-re active normal Not Available [employer] [facility] [place] [address] [place], [address], 06/11/2022 18:18:30 07/21/19 23 07/21/2022 CBC (INCL UDES DIFF/ PLT) WBC 7.0 thous and/u L 4.0 - 9.8 normal Not Available [employer] [address], [address], 07/21/2022 10:45:03 07/21/19 23 07/21/2022 CBC (INCL UDES DIFF/ PLT) RBC 3.6 rafaela on/uL 3.9 - 4.9 low Not Available [employer] [address] [place] [address], [address], 07/21/2022 10:45:03 07/21/19 23 07/21/2022 CBC (INCL UDES DIFF/ PLT) hemoglobin 9.6 g/dL 11.8 - 14.8 low Not Available [address], [address], 07/21/2022 10:45:03 07/21/19 23 07/21/2022 CBC (INCL UDES DIFF/ PLT) hematocrit 30.3 % 35.5 - 44.0 low Not Available [address], [address], 07/21/2022 10:45:03 07/21/19 23 07/21/2022 CBC (INCL UDES DIFF/ PLT) MCV 84.6 fL 82.0 - 99.0 normal Not Available [address], [address], 07/21/2022 10:45:03 07/21/19 23 07/21/2022 CBC (INCL UDES DIFF/ PLT) MCH 26.8 pg 27.2 - 32.6 low Not Available [address], [address], 07/21/2022 10:45:03 07/21/19 23 07/21/2022 CBC (INCL UDES DIFF/ PLT) MCHC 31.7 g/dL 31.5 - 35.5 normal Not Available [address], [address], 07/21/2022 10:45:03 07/21/19 23 07/21/2022 CBC (INCL UDES DIFF/ PLT) RDW-CV 13.0 % 11.5 - 14.5 normal Not Available [address], [address], 07/21/2022 10:45:03 07/21/19 23 07/21/2022 CBC (INCL UDES DIFF/ PLT) platelet 202 thous and/u L 140 - 350 normal Not Available [address], [address], 07/21/2022 10:45:03 07/21/19 23 07/21/2022 CBC (INCL UDES DIFF/ PLT) MPV 12.6 fL 9.3 - 12.4 high Not Available [address], [address], 07/21/2022 10:45:03 07/21/19 23 07/21/2022 CBC (INCL UDES DIFF/ PLT) absolute neutrophil 4.51 thous and/u L 1.90 - 7.00 normal Not Available [address], [address], 07/21/2022 10:45:03 07/21/19 23 07/21/2022 CBC (INCL UDES DIFF/ PLT) absolute lymphocyte 1.70 thous and/u L 0.70 - 4.50 normal Not Available [address], [address], 07/21/2022 10:45:03 07/21/19 23 07/21/2022 CBC (INCL UDES DIFF/ PLT) absolute monocyte 0.46 thous and/u L 0.10 - 1.30 normal Not Available [address], [address], 07/21/2022 10:45:03 07/21/19 23 07/21/2022 CBC (INCL UDES DIFF/ PLT) absolute eosinophil 0.19 thous and/u L <0.70 normal Not Available [address], [address], 07/21/2022 10:45:03 07/21/19 23 07/21/2022 CBC (INCL UDES DIFF/ PLT) absolute basophil 0.06 thous and/u L <0.20 normal Not Available [address], [address], 07/21/2022 10:45:03 07/21/19 23 07/21/2022 CBC (INCL UDES DIFF/ PLT) absolute immature granulocyte 0.03 thous and/u L <0.03 normal Not Available [address], [address], 07/21/2022 10:45:03 07/20/19 23 07/16/2022 US, obste tric, follo w-up No observ ation record ed. [email or web address] [address], [place], [address], 07/20/2022 15:25:37 Result Notes None recorded. Problems Name Problem SNOMED Code Status Onset Date Resolution Date Notes Provider Name and Address Organization Details Recorded Time Vomiting without nausea 15391373214 9108 Completed Zofran and Reglan ineffect ice. 03/15/22 Prometha zine rx'd Cristinebarbara Mera null, [employer] - [facility] 3 12:36:42 Pregnanc y [id number] Completed 202109/04/2022 Cristine Mera null, [employer] - [facility] 3 12:36:44 Problem Notes None recorded. Procedures Surgical History Date Name Laterality Status Provider Name and Address Organization Details Recorded Time 3 delivery completed Cristine Calleman [place] - [facility] 08/09/2022 16:12:21 2 Date of Last Pap Smear completed CATIA Falcon [address] [facility], [place], [address], [facility] - [facility] 12/20/2021 11:25:35 1 Gall bladder completed Cristine [employer] - [facility] 03/15/2022 12:29:04 Imaging Results None recorded. Procedure Notes None recorded. Medical Equipment None Reported. Allergies Allergen ID Allergen Name Allergen Category Reaction Reaction Severity Criticality Documentation Date Start Date Code Code System Note Provider Name and Address Organization Details Recorded Time 277668 peanut allergeni c extract food,medi cation Not available Not available Not available 06/05/2021 26575 8 RxNorm Duyen Britsch null, [employer] - [facility] 2 12:00:52 395447 wheat preparati on food,medi cation Not available Not available Not available 06/05/2021 30524 52 RxNorm Duyen Britsch null, [place] - [facility] 2 12:00:52 481120 tree nut food Not available Not available Not available 06/05/2021 Duyen [facility], [facility] 12:00:52 Medications Name Sig Start Date Stop Date Status Note LastModified by Organization Details LastModified Time id now influenza a & b 2 test kit TEST DIRECTED TODAY 02/08 completed Not Available Not Available Not Available amoxicillin 500 mg capsule 06/05 completed Not Available Not Available Not Available acetaminoph en 325 mg tablet active Not Available Not Available Not Available Vitamin B-6 25 mg tablet TAKE 1 TABLET BY MOUTH DAILY active Not Available Not Available No t Available ofloxacin 0.3 % eye drops INSTILL 2 DROPS IN EACH EYE FOUR TIMES DAILY FOR 7 DAYS 07/05 completed Not Available Not Available Not Available hydrocodone 5 mg-acetamin ophen 325 mg tablet TAKE 1 TABLET BY MOUTH EVERY 4 HOURS NEEDED FOR PAIN 12/20 completed Not Available Not Available Not Available promethazin e 12.5 mg tablet TAKE 1 TABLET BY MOUTH FOUR TIMES DAILY 08/09 completed Not Available Not Available Not Available penicillin V potassium 500 mg tablet TAKE 1 TABLET BY MOUTH EVERY 12 HOURS FOR 10 DAYS 07/05 completed Not Available Not Available Not Available ondansetron 8 mg disintegrat ing tablet DISSOLVE 1 TABLET UNDER THE TONGUE TWICE DAILY 08/09 completed Not Available Not Available Not Available famotidine 20 mg tablet Take 1 tablet twice a day by oral route as needed. 08/09 completed Not Available Not Available Not Available pantoprazol e 40 mg tablet,ellen yed release TAKE 1 TABLET BY MOUTH EVERY DAY 01/11 completed Not Available Not Available Not Available lidocaine 5 % topical patch APPLY 1 PATCH DAILY. LEAVE ON MOST PAINFUL AREA UP TO 12 HOURS active Not Available Not Available No t Available docusate sodium 100 mg capsule TAKE 1 CAPSULE BY MOUTH TWICE DAILY 12/20 completed Not Available Not Available Not Available ibuprofen 600 mg tablet active Not Available Not Available Not Available ondansetron 4 mg disintegrat ing tablet DISSOLVE 1 TABLET ON TONGUE EVERY 8 HOURS 08/09 completed Not Available Not Available Not Available fluticasone propionate 50 mcg/actuati on nasal spray,suspe nsion 01/11 completed Not Available Not Available Not Available sertraline 50 mg tablet TAKE 1 TABLET BY MOUTH EVERY DAY active Not Available Not Available No t Available loratadine 10 mg tablet 01/11 completed Not Available Not Available Not Available metoclopram iam 10 mg tablet TAKE 1 TABLET BY MOUTH FOUR TIMES DAILY NEEDED 04/12 completed Not Available Not Available Not Available oxycodone 5 mg tablet 09/04 completed Not Available Not Available Not Available FeroSul 325 mg (65 mg iron) tablet Take 1 tablet every day by oral route for 30 days. active Not Available Not Available No t Available metoclopram iam 10 mg disintegrat ing tablet DISSOLVE 1 TABLET ON THE TONGUE FOUR TIMES DAILY 04/12 completed Not Available Not Available Not Available 28 mg iron-800 mcg tablet TAKE 1 TABLET BY MOUTH EVERY DAY active Not Available Not Available No t Available 19 29 mg iron-1 mg chewable tablet CHEW AND SWALLOW ONE TABLET EVERY DAY active Not Available Not Available No t Available Trulicity 0.75 mg/0.5 mL subcutaneou s pen injector INJECT 0.75MG (0.5ML) SUBCUTANE OUSLY ONCE WEEKLY active Not Available Not Available No t Available 28 mg-800 mcg tablet Take 1 tablet every day by oral route. 2022 active Not Available Not Available Not Avai lable Gummies 400 mcg-35 mg-25 mg-5 mg chewable tablet Take 1 tablet by oral route. 01/11 completed Not Available Not Available Not Available ID NOW COVID-19 Test Kit TEST DIRECTED TODAY 02/08 completed Not Available Not Available Not Available BinaxNOW COVID-19 Ag Self Test kit TEST DIRECTED TODAY 02/08 completed Not Available Not Available Not Available Vitals Date Recorded Body weight Provider Name an d Address Organization Details Last Updated DateTime 06/14/2022 28085.673342 g Angi Moctezuma, [facility] [address] [facility], [place], [address], [facility] 06/14/2022 11:04:57 Date Recorded Body height Body mass index (BMI) Body temperature Systolic And Diastolic Provider Name and Address Organization Details Last Updated DateTime 06/14/2022 157.48 cm 37.4 kg/m2 98.1 [degF] 120/70 mm[Hg] Ailyn Salazar [place] - [facility] 06/14/2022 10:48:08 Date Recorded Body weight Provider Name an d Address Organization Details Last Updated DateTime 07/05/2022 38880.81720 g Kolby Lara MD [address] [place], [address], [place] - [facility] 07/05/2022 15:31:12 Date Recorded Body height Body mass index (BMI) Body temperature Systolic And Diastolic Provider Name and Address Organization Details Last Updated DateTime 07/05/2022 157.48 cm 36.9 kg/m2 98.3 [degF] 122/74 mm[Hg] Ailyn Salazar [place] - [facility] 07/05/2022 14:38:47 Date Recorded Body weight Provider Name an d Address Organization Details Last Updated DateTime 07/20/2022 66015.57827 g Kolby Lara MD [facility] [place], [address], [place] - [facility] 07/20/2022 12:07:01 Date Recorded Body height Body mass index (BMI) Body temperature Systolic And Diastolic Provider Name and Address Organization Details Last Updated DateTime 07/20/2022 157.48 cm 37.7 kg/m2 98 [degF] 132/72 mm[Hg] Ailynjoe Salazar [place] - [facility] 07/20/2022 11:58:04 Date Recorded Body height Body mass index (BMI) Body weight Systolic And Diastolic Provider Name and Address Organization Details Last Updated DateTime 08/09/2022 157.48 cm 34.8 kg/m2 86954.550 3 g 122/80 mm[Hg] [facility] - [facility] 08/09/2022 16:11:01 Date Recorded Body height Body mass index (BMI) Body weight Systolic And Diastolic Provider Name and Address Organization Details Last Updated DateTime 09/04/2022 157.48 cm 33.8 kg/m2 93559.59 g 120/76 mm[Hg] [facility] 09/04/2022 12:38:12 Social History Question Answer Notes LastModified by Organizat ion Details LastModified Time Tobacco Smoking Status Current Some Day Smoker Duyen avila [facility] 06/05/2021 12:00:52 How Many Years Have You Consumed Alcohol? 8 Information not available 06/05/2021 Are You Blind Or Do You Have Difficulty Seeing? No Information not available 06/05/2021 Are You Deaf Or Do You Have Serious Difficulty Hearing? No Information not available 06/05/2021 What Type Of Diet Are You Following? REGULAR Information not available 06/05/2021 How Many Children Do You Have? 3 Information not available 06/05/2021 What Is Your Relationship Status? Information not available 06/05/2021 Are You Sexually Active? Yes Information not available 06/05/2021 At What Age Did You Start Smoking Tobacco? 14 Information not available 06/05/2021 How Many Years Have You Smoked Tobacco? 5 Information not available 06/05/2021 Sex: Female Functional Status Question Answer Note LastModified by Organizat ion Details LastModified Time Do you use any illicit or recreational drugs? No Information not available 06/05/2021 Do you or have you ever used any other forms of tobacco or nicotine? No Information not available 06/05/2021 What is your level of alcohol consumption? Occasional Information not available 06/05/2021 Do you or have you ever used e-cigarettes or vape? Former user of electronic cigarettes Information not available 06/05/2021 What is your exercise level? None Information not available 06/05/2021 Mental Status None recorded. Family History Relationship Description Onset Age of this Age Resolved Age Notes LastModified by Organization Details LastModified Time Paternal Grandfather Cerebrovascu lar accident [email or web address] Not available 12/2021 12:00:40 Paternal Grandfather Myocardial infarction kbritsch Not available 06/05 12:00:40 Father Depressive disorder kbritsch Not available 2021 12:00:40 Unspecified Relation Irritable bowel syndrome kbritsch Not available 2021 12:00:40 Brother Depressive disorder kbritsch Not available 2021 12:00:40 Paternal Grandmother Malignant neoplasm of lung kbritsch Not available 2021 12:00:40 Paternal Grandmother Malignant neoplasm of breast kbritsch Not available 2021 12:00:40 Paternal Grandmother Depressive disorder kbritsch Not available 2021 12:00:40 Medical History Condition Response Other Cancer N High Blood Pressure N Colon Cancer N Cytomegalovirus N Hyperthyroidism N Herpes (HSV) N Breast Cancer N Blood Transfusion N MRSA N Lung Cancer N Hypothyroidism N Depression N Incontinence N Panic Attacks N Neurological Disorder N Deep Vein Thrombosis N Anxiety Disorder N Autoimmune disease N Arthritis N Tuberculosis/Positive PPD N Shingles N Polycystic Ovarian Syndrome N Cervical Cancer N Hematuria N Chlamydia N Varicosities N Stroke N Crohn's Disease N Seasonal allergies N Alzheimer's/Dementia N COPD/Emphysema N HPV/Genital Warts N Endometriosis N IBS (Irritable Bowel Syndrome) N History of Abnormal Pap N High Cholesterol N Liver Disease N Kidney Infection N Fibromyalgia N Ulcer N Kidney Disease N HIV N Gallbladder disease N Sickle Cell Disease/Trait N Von Willebrand disease N ADD/ADHD N Eating Disorder N Diabetes Mellitus (non-insulin dependent ) N Anemia N Ovarian Problems N Multiple Sclerosis N Gonorrhea N Frequent Urinary Tract infections N Osteopenia N Headaches/migraines N GERD (reflux) N Ovarian Cancer N Diabetes (insulin dependent) N Seizures/Epilepsy N Fibroids N Asthma N Heart Attack N Lupus N Endometrial Cancer N Rubella N Blood Clotting Disorder N Bipolar Disorder N Diabetes Mellitus (during ) N Ulcerative Colitis N Hepatitis N Heart Disease N Pulmonary Embolism N RPR N Chicken Pox N Osteoporosis N Gynecological History Statement/Question Response Flow Heavy Date of LMP 11/14/2021 HPV Vaccine N Date of Last Pap Smear 03/06/2021 Duration of Flow (days) 3-7 Current Control Method None Age at Menarche 11 Obstetrics History GPAL:G 4 P 3 0 0 3 Type Value Full Term 3 Living 3 Total 4 Past Encounters Encounter ID Performer Location Encounter Start Date Encounter Closed Date Diagnosis/Indication Diagnosis SNOMED-CT Code Diagnosis ICD10 Code Diagnosis IMO Codes Diagnosis Note [id number] CATIA Potts [facility] [address] [place] [address] 06/05/2021 11:42:02 06/05/2021 14:42:32 test positive 788708466 Z32.01 *UPT faintly positive; unknown LMP date. Denies vaginal bleeding or pelvic/abd ominal pain.*Riley t ordered; f/u pending results.*D epression screen (+)- h/x of depression , not on meds. States she is fine w/o meds at this time.Mera ignacio SI [id number] CATIA Falcon [facility] [address] [place] [address] 12/20/2021 11:20:44 12/20/2021 11:52:53 test positive 296560058 Z32.01 HCG today then repeat in 48hrs. If numbers increase accordingl y will schedule NOB visit. Start on PNV. Rx sent. MAB precaution s discussed. Discussed diet and exercise. Hx of x 3 with no complicati ons. All were term. Unplanned . She and FOB are . Hx notable for MAB 05/2021. Amenorrhea 51958232 N91. 2 [id number] Robert Dos Santos CNM [facility] [place] [address] [place] [address] 01/11/2022 11:29:59 01/11/2022 14:33:21 Menstrual period late 48257639 N92.6 [id number] Robert Dos Santos CNM [address] [address] 02/08/2022 11:08:53 02/08/2022 14:15:04 Routine care 779486212 Z34.91 screening 2437 36571 Z36.0 Carrier de tection, molecular genetics 5540421 Z14.8 [id number] CATIA Falcon [place] [address] [place] [address] 03/15/2022 12:17:19 03/15/2022 13:25:54 Routine care 362036326 Z34.82 Nausea and vomiting 1693 1999 R11.2 [id number] Angi Moctezuma CNM [facility] [address] [place] [address] 04/12/2022 11:30:18 04/12/2022 13:17:02 Normal in multigravida 3540719365 60295 Z34.82 Gestation period, 20 weeks 38342460 Z3A.20 Indigestion 080334209 K3 0 [id number] Salma Salazar CATIA [facility] [address] [place] [address] 05/24/2022 10:50:04 05/24/2022 11:12:06 Normal in multigravida 5714571663 369[address] Z34.82 Gestation period, 24 weeks 089215737 Z3A.24 Routine an tenatal care 351505212 Z34.03 Z34.83 O09.513 O09.454 [id number] Angi Moctezuma CNM [address] [address] 06/14/2022 10:34:18 06/15/2022 12:05:37 Normal in multigravida 2138598891 09274 Z34.82 Gestation period, 29 weeks 92917827 Z3A.29 labor precaution s given. FM counts discussed. F/u in L&D if experienci ng decreased movement, leaking fluid, 4 or more contractio ns in 1 hour not relieved by rest and fluids, or regular uterine contractio ns increasing in frequency and/or intensity. Depression screening 171 794628 Z13.31 [id number] Kolby Lara MD [address] [address] 07/05/2022 14:24:53 07/06/2022 10:14:35 Normal in multigravida 6671689893 60926 Z34.82 Gestation period, 32 weeks 8410913 Z3A.32 labor precaution s given. FM counts discussed. F/u in L&D if experienci ng decreased movement, leaking fluid, 4 or more contractio ns in 1 hour not relieved by rest and fluids, or regular uterine contractio ns increasing in frequency and/or intensity. Anemia of 2733 2003 O99.624 [id number] Kolby Lara MD [address] [phone] 07/20/2022 11:16:18 07/26/2022 09:47:14 Routine care [id number] Z34.03 Gestation period, 34 weeks [id number] Z3A.34 Anemia of 2734 2003 O99.651 [id number] CATIA Falcon [facility] [address] [place] [address] 08/09/2022 16:03:49 08/09/2022 16:27:12 state [id number] Z39.2 Pt educated on avoidance of vigorous exercise, lifting anything heavier than , and sexual activity. Plan to F/U in 4 weeks for post visit. Maternal p ostpartum depression screening [id number] 44852 Z13.32 PHQ9: 14. Pt educated on abnormal scoring, and discussed recommenda tion for referral to psych for further management . Agreeable to Zoloft. Denies SI/HI depression 58 500410 F53.0 All risks/side effects of Zoloft discussed. Will re-evaluat e at her upcoming 4 week visit [id number] Samantha Wong MD [facility] [address] [place] [address] 09/04/2022 12:28:54 09/05/2022 11:07:12 state [id number] Z39.2 Maternal p ostpartum depression screening [id number] 54143 Z13.32 Surveillan ce of contraception [id number] Z30.40 declines Health Concerns Section Related Observation LastModified by Organization Detai ls LastModified Time None Recorded Concern Status LastModified by Organization Details LastModified Time None Recorded Advance Directives Directive None Recorded Payers Insurance Date Sequence Insurance Name Policy Number Policy Mckeon Covered Member ID Mckeon Member ID Guarantor Name 01/10/2024 1 [facility] - DOS ON OR AFTER 20 (MEDICAID REPLACEMENT - HMO) Leonarda Escamilla [id number] Leonarda Escamilla Notes Date Note Type Note Provider Name and Address Organization Details Recorded Time 07/20/2022 text/html Leonarda is here today for a routine OB visit. She is currently at 34.5 weeks gestation. She has no complaints or questions. She is taking vitamins. She has felt movement. She denies the presence of vaginal bleed, leaking fluid, abdominal cramps, nausea, vomiting. There are no identifiable risk factors for pre-term labor. Kolby Lara MD [address] [place] [address], [phone], [facility] 07/20/2022 12:33:26 08/09/2022 text/html VisitReported by PatientHPIFor associated symptoms, patient reportsno abnormal bleeding,no vaginal discharge,no pelvic pain,laceration well healed,no constipation,no fecal incontinence,no dysuria,no urinary incontinence,no fever,no problems,no mastitis, andnormal mood.ROS as noted in the HPI Patient is here for her 2 week post partumHer son remains in the NICUShe had an emergency c/s for abruptionShe is pumping and breast feedingShe has a hx of post depression with all of her 4 pregnancies. She currently c/o depression. She denies anxiety. She denies SI/HI. She declines tx with her other pregnancies CATIA Falcon [address] [place] [address], [phone], [facility] 08/09/2022 16:47:21 09/04/2022 text/html VisitReported by PatientHPIFor quality, patient reportsnsvd. For associated symptoms, patient reportsno abnormal bleeding,no vaginal discharge,no pelvic pain,laceration well healed,no constipation,no fecal incontinence,no dysuria,no urinary incontinence,no fever,no problems,no mastitis, andnormal mood. For onset/timing, (07/25/2022).ROS as noted in the HPI Samantha Wong MD [address] [place] [address], [phone], [facility] 09/05/2022 08:48:03 OBGyn Episode Ob Episode Information Episode Created Date Number of Fetuses Patient Bloodtype Patient rh Status Prepregnancy Weight lbs Domestic Partner Domestic Partner Phone Father Name Backup Engineer Status 06/06/19 22 1 CLOSED Fetus Data First Name Last Name Admitted to NICU Weight (g) Sex Living Outcome Pediatric Complications Fetus ID Race Codes Race Delivery Type 2267.96 F Full Term [id number] Michael Calculation Initial Michael Date Initial Exam Date Initial Exam Provider Initial Ultrasound Date Last Menstrual Period Date Ultra Sound Weeks Gestation 0 Eighteen To Twenty Week Michael Update Ultra Sound Date Fundal Height At Umbil Quickening Date Ultra Sound Latest Weeks Gestation Final Michael Confirmed By Final Michael Confirmed Date Final Michael Date Ultra Sound Latest Days Gestation 0 0 Menstrual History Last Menstrual Date Menses Monthly On Bcp Conception Prior Menses Frequency Hcg Plus Date Menarche Onset Age Delivery Information Delivery Date Delivery Type Labor Anesthesia Weeks Gestation Incision Type Labor Labor Length Hrs Delivered By Post Complications Tubal Sterilization Discharge Date Comments 7 Discharge Information Feeding Method Contraceptive Method Maternal HG B and HCT Levels Ob Episode Information Episode Created Date Number of Fetuses Patient Bloodtype Patient rh Status Prepregnancy Weight lbs Domestic Partner Domestic Partner Phone Father Name Backup Engineer Status 06/06/19 22 1 CLOSED Fetus Data First Name Last Name Admitted to NICU Weight (g) Sex Living Outcome Pediatric Complications Fetus ID Race Codes Race Delivery Type 3175.14 4 F Full Term [id number] Michael Calculation Initial Michael Date Initial Exam Date Initial Exam Provider Initial Ultrasound Date Last Menstrual Period Date Ultra Sound Weeks Gestation 0 Eighteen To Twenty Week Michael Update Ultra Sound Date Fundal Height At Umbil Quickening Date Ultra Sound Latest Weeks Gestation Final Michael Confirmed By Final Michael Confirmed Date Final Michael Date Ultra Sound Latest Days Gestation 0 0 Menstrual History Last Menstrual Date Menses Monthly On Bcp Conception Prior Menses Frequency Hcg Plus Date Menarche Onset Age Delivery Information Delivery Date Delivery Type Labor Anesthesia Weeks Gestation Incision Type Labor Labor Length Hrs Delivered By Post Complications Tubal Sterilization Discharge Date Comments 2 Discharge Information Feeding Method Contraceptive Method Maternal HG B and HCT Levels Ob Episode Information Episode Created Date Number of Fetuses Patient Bloodtype Patient rh Status Prepregnancy Weight lbs Domestic Partner Domestic Partner Phone Father Name Backup Engineer Status 06/06/19 22 1 CLOSED Fetus Data First Name Last Name Admitted to NICU Weight (g) Sex Living Outcome Pediatric Complications Fetus ID Race Codes Race Delivery Type 3600.15 [id number] M Full Term [id number] Michael Calculation Initial Michael Date Initial Exam Date Initial Exam Provider Initial Ultrasound Date Last Menstrual Period Date Ultra Sound Weeks Gestation 0 Eighteen To Twenty Week Michael Update Ultra Sound Date Fundal Height At Umbil Quickening Date Ultra Sound Latest Weeks Gestation Final Michael Confirmed By Final Michael Confirmed Date Final Michael Date Ultra Sound Latest Days Gestation 0 0 Menstrual History Last Menstrual Date Menses Monthly On Bcp Conception Prior Menses Frequency Hcg Plus Date Menarche Onset Age Delivery Information Delivery Date Delivery Type Labor Anesthesia Weeks Gestation Incision Type Labor Labor Length Hrs Delivered By Post Complications Tubal Sterilization Discharge Date Comments 6 Discharge Information Feeding Method Contraceptive Method Maternal HG B and HCT Levels Ob Episode Information Episode Created Date Number of Fetuses Patient Bloodtype Patient rh Status Prepregnancy Weight lbs Domestic Partner Domestic Partner Phone Father Name Backup Engineer Status 02/09/20 22 1 A Positive CLOSED Fetus Data First Name Last Name Admitted to NICU Weight (g) Sex Living Outcome Pediatric Complications Fetus ID Race Codes Race Delivery Type 2579.80 45 M [id number] Primary Problems Problem Notes Problem Name Start Date End Date Resolution Snomed Code Not e Vomiting without nausea [id number] Zofran and R georgie ineffectice. 03/15/22 Promethazine rx'd Michael Calculation Initial Michael Date Initial Exam Date Initial Exam Provider Initial Ultrasound Date Last Menstrual Period Date Ultra Sound Weeks Gestation 08/26/2022 02/08/2022 01/11/2022 11/14/2021 7 Eighteen To Twenty Week Michael Update Ultra Sound Date Fundal Height At Umbil Quickening Date Ultra Sound Latest Weeks Gestation Final Michael Confirmed By Final Michael Confirmed Date Final Michael Date Ultra Sound Latest Days Gestation 0 [email or web address] 02/08/2022 08/27/19 23 0 Pre-era Flowsheet Flowsheet Date 02/08/2022 Garrison Score Blood Edema Fundus Height Fundus Units Glucose Ketones Leukocytes Nitrite Labor Signs Protein Cervic Dilation Cervic Effacement Cervic Station none 12 none none neg Type Weight in lbs Pre/Post Dialysis Refused With clothes 205.686595594280 BP Diastolic BP Location Tested BP Systolic BP Type 60 110 sitting Fetus Heart Rate Present A 164 Fetus Movement A Yes Comments Doing well. Extreme fatigue. NOB labs with TSH today and Rattan. Pt and FOB no longer together, but doing well co-parenting. Flowsheet Date 03/15/2022 Garrison Score Blood Edema Fundus Height Fundus Units Glucose Ketones Leukocytes Nitrite Labor Signs Protein Cervic Dilation Cervic Effacement Cervic Station none none none neg Type Weight in lbs Pre/Post Dialysis Refused Weight 200.852266469186 BP Diastolic BP Location Tested BP Systolic BP Type 80 122 Fetus Heart Rate Present A 143 Fetus Movement Comments Rattan and TSH were not perfo rmed at last visit. TSH/Penta performed todayOrder given to have 20 week anatomy scan performed at [facility] Flowsheet Date 04/12/2022 Garrison Score Blood Edema Fundus Height Fundus Units Glucose Ketones Leukocytes Nitrite Labor Signs Protein Cervic Dilation Cervic Effacement Cervic Station none none Type Weight in lbs Pre/Post Dialysis Refused With clothes 200.578913912670 BP Diastolic BP Location Tested BP Systolic BP Type 70 110 sitting Fetus Heart Rate Present A 159 Fetus Movement A Yes Comments Anatomy done at [facility] - no rep ort available at this time. No OB concerns. Flowsheet Date 05/24/2022 Garrison Score Blood Edema Fundus Height Fundus Units Glucose Ketones Leukocytes Nitrite Labor Signs Protein Cervic Dilation Cervic Effacement Cervic Station none 27 none none neg Type Weight in lbs Pre/Post Dialysis Refused Weight 203.12612930181 BP Diastolic BP Location Tested BP Systolic BP Type 72 114 Fetus Heart Rate Present A 129 Fetus Movement A Yes Comments Order given for 28 week labs to be drawn at [facility] Flowsheet Date 06/14/2022 Garrison Score Blood Edema Fundus Height Fundus Units Glucose Ketones Leukocytes Nitrite Labor Signs Protein Cervic Dilation Cervic Effacement Cervic Station none 30 cm none Type Weight in lbs Pre/Post Dialysis Refused With clothes 204.023866716004 BP Diastolic BP Location Tested BP Systolic BP Type 70 120 sitting Fetus Heart Rate Present A 153 Fetus Movement A Yes Comments No OB concerns. F/u in 2 wks . 1 hr glucose normal Flowsheet Date 07/05/2022 Garrison Score Blood Edema Fundus Height Fundus Units Glucose Ketones Leukocytes Nitrite Labor Signs Protein Cervic Dilation Cervic Effacement Cervic Station none 32 none Type Weight in lbs Pre/Post Dialysis Refused With clothes 202.085912471382 BP Diastolic BP Location Tested BP Systolic BP Type 74 122 sitting Fetus Heart Rate Present A 134 Fetus Movement A Yes Comments BSUS showed good FM, and nor mal AF. CBC for anemia. Flowsheet Date 07/20/2022 Garrison Score Blood Edema Fundus Height Fundus Units Glucose Ketones Leukocytes Nitrite Labor Signs Protein Cervic Dilation Cervic Effacement Cervic Station Type Weight in lbs Pre/Post Dialysis Refused With clothes 206.252956465325 BP Diastolic BP Location Tested BP Systolic BP Type 72 132 sitting Fetus Heart Rate Present Fetus Movement Comments Reports good movement, no Leakage of fluids no vaginal bleeding. labor precautions discussed, precautions discussed, patient to come back if decreased movement leakage of fluid or vaginal bleeding.She had insomnia I recommend unisom.CBC for anemia F/U she was encouraged to be regular on her PNV and iron. Flowsheet Date 08/09/2022 Garrison Score Blood Edema Fundus Height Fundus Units Glucose Ketones Leukocytes Nitrite Labor Signs Protein Cervic Dilation Cervic Effacement Cervic Station Type Weight in lbs Pre/Post Dialysis Refused Weight 190.759309241329 BP Diastolic BP Location Tested BP Systolic BP Type 80 122 Fetus Heart Rate Present Fetus Movement Comments Flowsheet Date 09/04/2022 Garrison Score Blood Edema Fundus Height Fundus Units Glucose Ketones Leukocytes Nitrite Labor Signs Protein Cervic Dilation Cervic Effacement Cervic Station Type Weight in lbs Pre/Post Dialysis Refused Weight 185.320400163536 BP Diastolic BP Location Tested BP Systolic BP Type 76 120 Fetus Heart Rate Present Fetus Movement Comments Menstrual History Last Menstrual Date Menses Monthly On Bcp Conception Prior Menses Frequency Hcg Plus Date Menarche Onset Age 0911/14/2021 Genetic Screening And Infection History Question Response Note Recent Travel History Outside of Country false Cystic Fibrosis false Any Other Genetic History false Alley Disease false Other Infection History false Thalassemia (Turkmen, Dominican, Mediterranean, Or Background): MCV < 80 false Patient Or Baby's Father Had A Child With Defects Not Listed Above false Live With Someone With TB Or Exposed To TB false Patient's Age Will Be 35 Yea rs Or Older At Estimated Date of Delivery false Recurrent Loss, Or A Stillbirth false Hemoglobinopathy Or Carrier false Patient Or Partner Has Histo ry Of Genital Herpes false Intellectual Disability/Autism false Maternal Metabolic Disorder (eg, Type 1 Diabetes, PKU) false History of Hepatitis false Juarez-Sachs (eg, Sabianism, Cajun , Serbian-[place]) false History Of STD, Gonorrhea, C hlamydia, HPV, Syphilis false Prior GBS-infected child false History of HIV false Personal or Family History o f Neural Tube Defect (Meningomyelocele, Spina Bifida, Or Anencephaly) false Hemophilia Or Other Blood Disorders false Mental Retardation/Autism false Chouteau's Chorea false If Yes, Was Person Tested For Fragile X? false Other Inherited Genetic Or C hromosomal Disorder false If Yes, Agent(s) And Strength/Dosage false Sickle Cell Disease Or Trait () true sister is with sickle cell (different dad) Personal or Family History o f Congenital Heart Defect false Rash Or Viral Illness Since Last Menstrual Period false Muscular Dystrophy false Medications (including Suppl ements, Vitamins, Herbs, OTC Drugs), Illicit/Recreational Drugs, Alcohol false Other Structural Defect false Down Syndrome false Delivery Information Delivery Date Delivery Type Labor Anesthesia Weeks Gestation Incision Type Labor Labor Length Hrs Delivered By Post Complications Tubal Sterilization Discharge Date Comments 3 Sponta neous 35.3 true Samantha Wong MD 07/26/2022 Discharge Information Feeding Method Contraceptive Method Maternal HG B and HCT Levels Breast
== END 2024-12-10 16:21 | disposition home or self-care (01) ==
PROVIDERS: Emergency Provider Preventive Medicine Aerospace Medicine
DX: S76.312A Strain of muscle, fascia and tendon of the posterior muscle group at thigh level, left thigh, initial encounter (principal); M25.562 Pain in left knee; G89.29 Other chronic pain; Z90.49 Acquired absence of other specified parts of digestive tract; X58.XXXA Exposure to other specified factors, initial encounter
CPT/HCPCS: 73562; 99283